=== PATIENT | female | born 1950 | race Caucasian/White ===

== ENCOUNTER 2016-09-01 15:32 | Outpatient (CLI) | payer OTHER, MEDICARE | END 2016-09-01 15:33 | disposition home or self-care (01) | DX: M17.0 Bilateral primary osteoarthritis of knee (principal) ==

== ENCOUNTER 2016-09-27 09:39 | Outpatient (CLI) | payer OTHER, MEDICARE | END 2016-09-27 09:40 | disposition home or self-care (01) | DX: E11.9 Type 2 diabetes mellitus without complications (principal); E78.5 Hyperlipidemia, unspecified ==

== ENCOUNTER 2016-10-07 04:10 | Outpatient (CLI) | payer OTHER, MEDICARE | END 2016-10-07 04:11 | DX: K51.80 Other ulcerative colitis without complications (principal) ==

== ENCOUNTER 2017-03-17 20:17 | Emergency (ER) | payer OTHER, MEDICARE ==
--- NOTE | 2017-03-17 20:57 | ED Physician Documentation ---
PD HPI ABD PAIN - Stated complaint Stated Complaint: R SIDE PX - Chief complaint Chief Complaint: Abd Pain - History obtained from History obtained from: Patient - History of Present Illness Timing - onset: How many days ago (1-2) Timing - duration: Days (has had pain in right lower abd for couple of months or so, but it is worse the past 2 days and feeling more sharp pain. Nausea but no vomiting. Had had Dx of hernia by surgeon in [facility]. Has appt with Dr. Kulkarni Apr 06.) Timing - details: Gradual onset, Still present, Waxing and waning Quality: Aching, Sharp, Pain Location: RLQ Radiation: Lower back Improved by: Laying still. No: Eating Worsened by: Moving, Palpation. No: Eating, Breathing Associated symptoms: Nausea, Diarrhea (loose stools). No: Fever, Vomiting, Constipation, Melena, Dysuria, Near syncope / syncope Similar symptoms before: Diagnosis (presumed pain from hernias found on prior CT scan.) Review of Systems Constitutional: denies: Fever, Chills, Myalgias Nose: denies: Rhinorrhea / runny nose, Congestion Throat: denies: Sore throat Cardiac: denies: Chest pain / pressure Respiratory: denies: Cough GI: reports: Abdominal Pain, Nausea, Diarrhea (soft stool). 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: Hysterectomy, Oophrectomy HEENT: Tonsil/Adenoidectomy - Present Medications Home Medications: Ambulatory Orders Medication Instructions Recorded Confirmed Aspirin [Children's Aspirin] 81 mg PO DAILY 05/16/13 06/22/16 Bupropion HCl [Wellbutrin] 100 mg PO BID 05/16/13 06/22/16 Cholecalciferol (Vitamin D3) 2,000 unit PO BID 05/16/13 06/22/16 [Vitamin D] Gabapentin [Neurontin] 300 mg PO BID 05/16/13 06/22/16 Insulin Glargine,Hum.rec.anlog 38 unit SQ QPM 05/16/13 06/21/16 [Lantus Solostar] Lidocaine Patch 5% [Lidoderm Patch] 1 each TOP DAILY PRN 05/16/13 06/21/16 Lisinopril [Prinivil] 20 mg PO DAILY 05/16/13 06/22/16 Simvastatin 40 mg PO QPM 05/16/13 06/21/16 Multivitamin [Multiple Vitamins] 1 each PO DAILY 06/21/16 06/22/16 Omeprazole [PriLOSEC] 20 mg PO DAILY 06/21/16 06/21/16 Oxycodone HCl/Acetaminophen 1 each PO Q6HR PRN 06/21/16 06/22/16 [Oxycodone-Acetaminophen 5-325] Naproxen 375 mg PO BID #20 tablet 03/18/17 Oxycodone HCl/Acetaminophen 1 each PO Q6H PRN #20 tablet 03/18/17 [Percocet 5-325 mg Tablet] - Allergies Allergies/Adverse Reactions: Allergies Allergy/AdvReac Type Severity Reaction Status Date / Time codeine [Codeine] Allergy NAUSEA/EMES Verified 03/17/17 20:27 IS - Living Situation Living Arrangement: reports: At home - Social History Does the pt smoke?: Yes Smoking Status: Current every day smoker Does the pt drink ETOH?: No - Family History Family history: reports: Non contributory - Immunizations Immunizations are current?: Yes PD ED PE NORMAL - Vitals Vital signs reviewed: Yes - General General: Alert and oriented X 3, No acute distress, Well developed/nourished - HEENT HEENT: Moist mucous membranes, Pharynx benign - Neck Neck: Supple, no meningeal sign, No adenopathy - Cardiac Cardiac: RRR, No murmur - Respiratory Respiratory: Clear bilaterally - Abdomen Abdomen: Normal bowel sounds, Soft, Non distended, No organomegaly, Other ( tender RLQ without mass, nor percussion tenderness. Does have some local guarding. ) - Female Female : Deferred - Rectal Rectal: Deferred - Back Back: No CVA TTP - Derm Derm: Normal color, No rash - Extremities Extremities: No deformity, No tenderness to palpate, Normal ROM s pain, No edema - Neuro Neuro: Alert and oriented X 3, No motor deficit, Normal speech - Psych Psych: Normal mood, Normal affect Results - Vitals Vitals: Vital Signs - 24 hr 03/17/17 03/18/17 03/18/17 20:20 00:13 00:16 Temperature 36.7 C Heart Rate 86 57 L Respiratory 17 17 16 Rate Blood Pressure 191/93 H 129/59 L O2 Saturation 97 96 03/18/17 00:23 Temperature Heart Rate 56 L Respiratory 16 Rate Blood Pressure 154/75 H O2 Saturation 96 Oxygen O2 Source Room air - Labs Labs: Laboratory Tests 03/17/17 03/17/17 03/17/17 21:33 21:33 21:33 WBC 9.5 RBC 4.29 Hgb 13.2 Hct 39.1 MCV 91.1 MCH 30.7 MCHC 33.7 RDW 13.6 Plt Count 192 MPV 8.7 Neut # 5.8 Lymph # 2.9 Tompkins # 0.5 Eos # 0.2 Baso # 0.1 Absolute Nucleated RBC 0.01 Nucleated RBCs 0.1 Sodium 140 Potassium 3.7 Chloride 105 Carbon Dioxide 28 Anion Gap 7.0 BUN 16 Creatinine 0.7 Estimated GFR (MDRD) 84 L Glucose 192 H Calcium 9.0 Total Bilirubin 0.4 AST 21 ALT 33 Alkaline Phosphatase 62 Total Protein 7.0 Albumin 3.9 Globulin 3.1 Albumin/Globulin Ratio 1.3 Lipase 29 Urine Color YELLOW Urine Clarity CLEAR Urine pH 5.5 Ur Specific [place] >=1.030 H Urine Protein NEGATIVE Urine Glucose (UA) NEGATIVE Urine Ketones NEGATIVE Urine Occult Blood TRACE-LYSE Urine Nitrite NEGATIVE Urine Bilirubin NEGATIVE Urine Urobilinogen 0.2 (NORMAL) Ur Leukocyte Esterase TRACE H Urine RBC 0-5 Urine WBC 4-5 Ur Squamous Epith Cells MOD Squamous H Urine Bacteria Rare Ur Microscopic Review INDICATED Urine Culture Comments NOT INDICATED PD MEDICAL DECISION MAKING - ED course Complexity details: reviewed results, re-evaluated patient, considered differential (no obvious incarceration nor blockage on CT. Having increased pain over baseline, presume from her hernia. Can treat with pain meds short term until sees Surgeon in office. Labs are okay too, so I don't have indicator of bad process. ), d/w patient Departure - Departure Disposition: 01 Home, Self Care Clinical Impression: Lower abdominal pain Condition: Stable Record reviewed to determine appropriate education?: Yes Instructions: ED Abdominal Pain Unkn Cause Follow-Up: Neno Rosales MD [Primary Care Provider] - Gideon Alicea MD [Provider Admit Priv/Credential] - Prescriptions: Naproxen 375 mg PO BID #20 tablet Oxycodone HCl/Acetaminophen [Percocet 5-325 mg Tablet] 1 each PO Q6H PRN #20 tablet PRN Reason: Pain Comments: Drink lots of fluids. Regular home medications. Add naproxen twice daily for the next week or so. Continue the oxycodone as needed for pain. Follow-up with Dr. Alicea, call his office Monday to see if you can get a sooner appointment. Discharge Date/Time: 03/18/17 00:30
[2017-03-17] MEDS ORDERED: HYDROmorphone 1 MG/ML SYRINGE IVP STA ×2 (21:17→23:49)
[2017-03-17] MEDS ORDERED: HYDROmorphone 1 MG/ML SYRINGE ONE ×2 (21:40→23:54)
[2017-03-17] MEDS ORDERED: SODIUM CHLORIDE FLUSH 0.9% 10 ML SYRINGE IVP ONE ×2 (21:41→23:55)
[2017-03-17 21:57] LABS: BASOPHILS # (AUTO) 0.1 10^3/uL (0.0-0.1); BASOPHILS % (AUTO) 0.5 %; EOSINOPHILS # (AUTO) 0.2 10^3/uL (0.0-0.7); EOSINOPHILS % (AUTO) 1.7 %; HCT - HEMATOCRIT 39.1 % (37.0-47.0); HGB - HEMOGLOBIN 13.2 g/dL (12.0-16.0); LYMPHOCYTES # (AUTO) 2.9 10^3/uL (1.5-3.5); LYMPHOCYTES % (AUTO) 30.6 %; MEAN CORPUSCULAR HEMOGLOBIN 30.7 pg (27.0-31.0); MEAN CORPUSCULAR HGB CONC 33.7 g/dL (32.0-36.0); MEAN CORPUSCULAR VOLUME 91.1 fL (81.0-99.0); MEAN PLATELET VOLUME 8.7 fL (7.9-10.8); MONOCYTES # (AUTO) 0.5 10^3/uL (0.0-1.0); MONOCYTES % (AUTO) 5.8 %; NEUTROPHILS # (AUTO) 5.8 10^3/uL (1.5-6.6); NEUTROPHILS % (AUTO) 61.4 %; NUCLEATED RED BLOOD CELLS AUTO 0.1 /100WBC; RED BLOOD COUNT 4.29 10^6/uL (4.20-5.40); RED CELL DISTRIBUTION WIDTH 13.6 % (12.0-15.0); UNCORRECTED WHITE BLOOD COUNT 9.5 x10^3/uL; WHITE BLOOD COUNT 9.5 x10^3/uL (4.8-10.8)
[2017-03-17 22:12] LABS: ALBUMIN/GLOBULIN RATIO 1.3 (1.0-2.2); BILIRUBIN,TOTAL 0.4 mg/dL (0.2-1.0); CREATININE 0.7 mg/dL (0.4-1.0); POTASSIUM 3.7 mmol/L (3.5-5.0)
[2017-03-17 22:14] LABS: BILIRUBIN,URINE NEGATIVE (NEGATIVE); PH,URINE 5.5 PH (5.0-7.5)
[2017-03-17 22:17] LABS: UA w/ MICROSCOPIC CHARGE YES
[2017-03-17 22:26] LABS: UR CULTURE IF IND NOT INDICATED
[2017-03-17] MEDS ORDERED: IOPAMIDOL-300 100 ML VIAL IVP ONE (22:45)
--- NOTE | 2017-03-17 23:37 | CT Preliminary Report ---
Exam: CT Abdomen/Pelvis W/ IMPRESSION: 1. Mildly dilated common duct measuring 9 mm appears unchanged. 2. Left lower pole renal calculus measures 5 mm, nonobstructing, unchanged. 3. Upper abdomen fat-containing ventral hernia with a wide neck, measures 5.4 cm appears unchanged. 4. There appears to be rectal prolapse. Increased soft tissue attenuation and fullness at the perirec dwayne and perianal regions, appear to be present back in 2013. Correlate with the physical exam. No mihai dence for bowel obstruction. Stool volume in the colon appears within normal limits. 5. No evidence for inguinal hernia 6. Otherwise, as above. [facility] SITE ID: [id number]
--- NOTE | 2017-03-17 23:47 | CT Report ---
EXAM: CT ABDOMEN AND PELVIS EXAM DATE: 03/17/2017 10:54 PM. CLINICAL HISTORY: Prior abdominal hernias, hurting consistently today in the right lower quadrant COMPARISONS: CT abdomen and pelvis 05/13/2016 and 09/25/2013. TECHNIQUE: Routine helical CT imaging was performed through the abdomen and pelvis. IV contrast: 100 mL Isovue 300. Enteric contrast: No. Reconstructions: Coronal and sagittal. In accordance with CT protocol optimization, one or more of the following dose reduction techniques w ere utilized for this exam: automated exposure control, adjustment of mA and/or KV based on patient s ize, or use of iterative reconstructive technique. FINDINGS: Lung Bases: Mild coronary artery calcification. 5 mm left lower lobe pulmonary nodule appears unchang ed from 05/13/2016 and 09/25/2013 consistent with benign. Right middle lobe 4 mm pulmonary nodule, un changed from 05/13/2016, not imaged on 09/25/2013 Liver: Lateral segment left hepatic lobe lobular low density mass measures 2.6 cm and this was seen o n the prior, has HU of 16 most suggestive for a liver cyst, appears to have a thin septation. Liver c ontour appears within normal limits. Gallbladder/Bile Ducts: Status post cholecystectomy. Mildly dilated common duct measuring 9 mm appear s unchanged. Spleen: Normal. Pancreas: Normal. Adrenal Glands: Normal. Kidneys: Tiny nonspecific low density lower pole left kidney. Small left parapelvic cyst. Left lower pole renal calculus measures 5 mm, nonobstructing, unchanged. No hydronephrosis. Peritoneal Cavity/Bowel: Mild sigmoid and descending colon diverticulosis without evidence for acute diverticulitis. The appendix is not definitely seen. No evidence for bowel obstruction. Upper abdomen fat-containing ventral hernia with a wide neck, measures 5.4 cm appears unchanged. There appears to be rectal prolapse. Increased soft tissue attenuation and fullness at the perirectal and perianal regions, appear to be present back in 2013. Correlate with the physical exam. No eviden ce for bowel obstruction. Stool volume in the colon appears within normal limits. No evidence for inguinal hernia Pelvic Organs: Normal. The bladder and visualized pelvic organs are within normal limits. Vasculature: No acute findings Bones: No acute bone findings Other: None. IMPRESSION: 1. Mildly dilated common duct measuring 9 mm appears unchanged. 2. Left lower pole renal calculus measures 5 mm, nonobstructing, unchanged. 3. Upper abdomen fat-containing ventral hernia with a wide neck, measures 5.4 cm appears unchanged. 4. There appears to be rectal prolapse. Increased soft tissue attenuation and fullness at the perirec dwayne and perianal regions, appear to be present back in 2013. Correlate with the physical exam. No mihai dence for bowel obstruction. Stool volume in the colon appears within normal limits. 5. No evidence for inguinal hernia 6. Otherwise, as above. [facility] Referring Provider Line: [phone] SITE ID: [id number]
[2017-03-17] MEDS ORDERED: KETOROLAC 60 MG/2 ML VIAL IVP STA (23:49)
[2017-03-17] MEDS ORDERED: KETOROLAC 30 MG/ML VIAL ONE (23:55)
[2017-03-18 00:29] VITALS: BP 154/75
== END 2017-03-18 00:30 | disposition home or self-care (01) ==
LOC: ED 20:17
DX: R10.31 Right lower quadrant pain (principal); K43.9 Ventral hernia without obstruction or gangrene; E11.9 Type 2 diabetes mellitus without complications; Z79.4 Long term (current) use of insulin; I10 Essential (primary) hypertension; K21.9 Gastro-esophageal reflux disease without esophagitis; Z87.442 Personal history of urinary calculi; F17.200 Nicotine dependence, unspecified, uncomplicated; H91.90 Unspecified hearing loss, unspecified ear; M54.9 Dorsalgia, unspecified; Z79.82 Long term (current) use of aspirin; Z79.891 Long term (current) use of opiate analgesic
CPT/HCPCS: 36415; 74177; 80053; 81001; 83690; 85025; 96374; 96375; 96376; 99284; J1170; Q9967; 81003; 87086

== ENCOUNTER 2017-03-27 09:38 | Outpatient (CLI) | payer OTHER, MEDICARE ==
[2017-03-27 18:58] LABS: HEMOGLOBIN A1C 1.14 g/dL
[2017-03-27 19:15] LABS: CHOL/HDL RATIO 3.5 (<4.4); CHOLESTEROL 227 mg/dL; HDL CHOLESTEROL 64 mg/dL; LDL/HDL RATIO 1.4 (<4.4); TRIGLYCERIDES 356 mg/dL; VLDL CHOLESTEROL 71 mg/dL
== END 2017-03-27 09:39 | disposition home or self-care (01) ==
LOC: LAB.F 09:38
PROVIDERS: ATTEND Physician Assistant
DX: E11.9 Type 2 diabetes mellitus without complications (principal)
CPT/HCPCS: 36415; 80061; 83036

== ENCOUNTER 2017-11-03 08:00 | Outpatient (CLI) | payer OTHER, MEDICARE ==
[2017-11-03 11:26] LABS: BASOPHILS % (AUTO) 0.5 %; EOSINOPHILS # (AUTO) 0.1 10^3/uL (0.0-0.7); EOSINOPHILS % (AUTO) 1.2 %; HGB - HEMOGLOBIN 14.2 g/dL (12.0-16.0); LYMPHOCYTES # (AUTO) 2.6 10^3/uL (1.5-3.5); LYMPHOCYTES % (AUTO) 31.4 %; MEAN CORPUSCULAR HEMOGLOBIN 30.5 pg (27.0-31.0); MEAN CORPUSCULAR HGB CONC 33.9 g/dL (32.0-36.0); MEAN CORPUSCULAR VOLUME 89.9 fL (81.0-99.0); MEAN PLATELET VOLUME 8.7 fL (7.9-10.8); MONOCYTES # (AUTO) 0.4 10^3/uL (0.0-1.0); NEUTROPHILS # (AUTO) 5.1 10^3/uL (1.5-6.6); NEUTROPHILS % (AUTO) 61.9 %; PLT - PLATELET COUNT 220 10^3/uL (130-450); RED BLOOD COUNT 4.66 10^6/uL (4.20-5.40); RED CELL DISTRIBUTION WIDTH 13.9 % (12.0-15.0); WHITE BLOOD COUNT 8.3 x10^3/uL (4.8-10.8)
[2017-11-03 11:40] LABS: HB2 TOTAL 15.7 g/dL; HEMOGLOBIN A1C 1.02 g/dL; HEMOGLOBIN A1C % 8.1 % (4.6-6.2)
[2017-11-03 11:44] LABS: % IRON SATURATION 14 % (20-50); ALBUMIN 4.4 g/dL (3.2-5.5); ALBUMIN/GLOBULIN RATIO 1.4 (1.0-2.2); ALKALINE PHOSPHATASE 49 IU/L (42-121); ALT ALANINE AMINOTRANSFERASE 41 IU/L (10-60); AST ASPARTATE AMINOTRANSFERASE 26 IU/L (10-42); BILIRUBIN,TOTAL 0.6 mg/dL (0.2-1.0); BUN - BLOOD UREA NITROGEN 18 mg/dL (6-20); CALCIUM 9.6 mg/dL (8.5-10.3); CARBON DIOXIDE - CO2 28 mmol/L (21-32); CHLORIDE 103 mmol/L (101-111); CHOL/HDL RATIO 3.4 (<4.4); CHOLESTEROL 230 mg/dL; CREATININE 0.6 mg/dL (0.4-1.0); GFR - MDRD 100 (>89); GLUCOSE 112 mg/dL (70-100); HDL CHOLESTEROL 68 mg/dL; IRON 59 ug/dL (28-170); LDL CHOLESTEROL,CALCULATED 117 mg/dL; LDL/HDL RATIO 1.7 (<4.4); SODIUM 141 mmol/L (135-145); TOTAL IRON BINDING CAPACITY 437 ug/dL (250-450); TOTAL PROTEIN 7.6 g/dL (6.7-8.2); TRANSFERRIN 312 mg/dL (192-382); VLDL CHOLESTEROL 45 mg/dL
[2017-11-03 11:53] LABS: THYROID STIMULATING HORMONE 1.46 uIU/mL (0.34-5.60)
[2017-11-03 12:00] LABS: FERRITIN 64.7 ng/mL (11.0-306.8)
[2017-11-03 13:01] LABS: FOLATE > 49.60 ng/mL (5.90 - >24.8)
[2017-11-10 17:37] LABS: ZINC, PLASMA 103 mcg/dL (60-130)
== END 2017-11-03 08:01 | disposition home or self-care (01) ==
LOC: LAB.F 08:00
PROVIDERS: ATTEND Physician Assistant
DX: K91.2 Postsurgical malabsorption, not elsewhere classified (principal); E78.5 Hyperlipidemia, unspecified; E11.9 Type 2 diabetes mellitus without complications; K80.00 Calculus of gallbladder with acute cholecystitis without obstruction
CPT/HCPCS: 36415; 80053; 80061; 81599; 82306; 82607; 82728; 82746; 83036; 83525; 83540; 83721; 84425; 84443; 84466; 84590; 84630; 84681; 85025

== ENCOUNTER 2017-11-07 08:00 | Outpatient (CLI) | payer OTHER, MEDICARE | END 2017-11-07 08:01 | LOC: LAB.F 08:00 | DX: K91.2 Postsurgical malabsorption, not elsewhere classified (principal); E78.5 Hyperlipidemia, unspecified; E11.9 Type 2 diabetes mellitus without complications; K80.00 Calculus of gallbladder with acute cholecystitis without obstruction | CPT/HCPCS: 84590 ==

== ENCOUNTER 2017-11-21 15:00 | Outpatient (CLI) | payer OTHER, MEDICARE | END 2017-11-21 15:01 | disposition home or self-care (01) | LOC: SC 15:00 | PROVIDERS: ATTEND Internal Medicine Pulmonary Disease | DX: R06.83 Snoring (principal); I10 Essential (primary) hypertension | CPT/HCPCS: 99203; 99212 ==

== ENCOUNTER 2017-12-21 08:43 | Outpatient (CLI) | payer OTHER, MEDICARE ==
[2017-12-21] MEDS ORDERED: REGADENOSON 0.4 MG/5 ML SYRINGE IVP ONE (10:12)
--- NOTE | 2017-12-21 15:41 | CARDIAC PROCEDURE NOTE ---
DATE OF SERVICE: 12/21/2017 Physician: JULIETTE Caruso DATE OF SERVICE: 12/21/2017. PRIMARY CARE PROVIDER: Taryn Munoz PA-C. SENIOR MARKET RESEARCH ANALYST: Dr. Gary Lino. PROCEDURE: Pharmacologic cardiac stress test. PROCEDURE SYMPTOMS: Of abnormal EKG with nonspecific ST changes. CARDIAC RISK FACTORS: Age, diabetes, hypertension, hyperlipidemia, and former smoker. PREVIOUS CARDIAC PROCEDURES: None. CLINICAL HISTORY: A 67-year-old female without known coronary artery disease. She has no current symptoms and no medications were held. INITIAL RESTING VITAL SIGNS: BP 138/70, heart rate 98, height 60 inches, weight 183 pounds. PROCEDURE AND FINDINGS: The patient identity and date verified. Consent signed. Pharmaceutical check. Pharmacologic stress testing was performed with Lexiscan at a dose of 0.4 mg over 10 seconds. The heart rate increased to 119 beats per minute from the infusion. Blood pressure response was increased to 154/66. The patient developed mild infusion-related symptoms, which included headache and resolved spontaneously. The resting ECG demonstrated normal sinus rhythm with 0.5-0.8 ST segment depression in leads II and aVF. Maximum ST segment depression with stress was more than 1.5 mm and downsloping. There was a rare PAC. FINAL IMPRESSIONS: 1. Positive electrocardiogram for ischemia in the setting of vasodilator stress. 2. Nondiagnostic stress test for angina. 3. Good quality test. 4. Await myocardial perfusion report. TD: 12/21/2017 15:40
--- NOTE | 2017-12-22 08:14 | Nuclear Medicine Report ---
EXAM: SINGLE-ISOTOPE PHARMACOLOGICAL STRESS TEST WITH REGADENOSON. SINGLE-ISOTOPE AND ONE-DAY REST/STRESS M YOCARDIAL PERFUSION SCANS WITH TOMOGRAPHIC IMAGING, QUANTITATIVE ANALYSIS, WALL MOTION ANALYSIS AND C ALCULATION OF EJECTION FRACTION. EXAM DATE: 12/21/2017 04:45 PM. CLINICAL HISTORY: Abnormal EKG. COMPARISON: None available. TECHNIQUE: After the intravenous administration of 9.5 mCi of Tc-99m sestamibi, a rest myocardial perfusion scan was done with tomography. Motion correction was applied when appropriate. After an appropriate delay, pharmacological stress was performed with the infusion of 0.4 mg regadeno son per protocol. According to protocol, 40.2 mCi of Tc-99m sestamibi was injected for stress myocard ial perfusion scan. Motion correction was applied when appropriate. Gated tomographic images were obtained for wall motion analysis and computation of left ventricular e jection fraction. FINDINGS: No convincing fixed or reversible perfusion defects are evident. Wall motion analysis demonstrates no focal wall motion abnormality. The left ventricular end-diastolic volume is 48 cc. The left ventricular end-systolic volume is 12 cc . The left ventricular ejection fraction is calculated to be 75%. IMPRESSION: 1. No scintigraphic findings to indicate myocardial ischemia. Negative for infarct. 2. Left ventricular ejection fraction of 75%. 3. Normal segmental and global wall motion. 4. Normal left ventricular cavity size, no change with stress. [facility] Referring Provider Line: [phone] SITE ID: [id number]
[2017-12-25 16:42] VITALS: BP 138/70
== END 2017-12-21 08:44 | disposition home or self-care (01) ==
LOC: DI 08:43
PROVIDERS: ATTEND Internal Medicine Cardiovascular Disease
DX: R94.31 Abnormal electrocardiogram [ECG] [EKG] (principal)
CPT/HCPCS: 78452; 93017; 93306; A9500; J2785; 93016; 93018

== ENCOUNTER 2018-01-25 09:00 | Outpatient (CLI) | payer OTHER, MEDICARE | END 2018-01-25 09:01 | disposition home or self-care (01) | LOC: SC 09:00 | PROVIDERS: ATTEND Nurse Practitioner Family | DX: G47.33 Obstructive sleep apnea (adult) (pediatric) (principal) | CPT/HCPCS: 99212; 99214 ==

== ENCOUNTER 2018-03-02 07:23 | Outpatient (CLI) | payer OTHER, MEDICARE ==
[2018-03-02 11:51] LABS: BASOPHILS # (AUTO) 0.1 10^3/uL (0.0-0.1); BASOPHILS % (AUTO) 0.9 %; EOSINOPHILS # (AUTO) 0.2 10^3/uL (0.0-0.7); EOSINOPHILS % (AUTO) 2.5 %; HGB - HEMOGLOBIN 13.2 g/dL (12.0-16.0); LYMPHOCYTES # (AUTO) 2.6 10^3/uL (1.5-3.5); LYMPHOCYTES % (AUTO) 33.7 %; MEAN CORPUSCULAR HEMOGLOBIN 30.2 pg (27.0-31.0); MEAN CORPUSCULAR HGB CONC 32.7 g/dL (32.0-36.0); MEAN CORPUSCULAR VOLUME 92.6 fL (81.0-99.0); MEAN PLATELET VOLUME 9.3 fL (7.9-10.8); MONOCYTES # (AUTO) 0.4 10^3/uL (0.0-1.0); MONOCYTES % (AUTO) 4.9 %; NEUTROPHILS # (AUTO) 4.4 10^3/uL (1.5-6.6); PLT - PLATELET COUNT 229 10^3/uL (130-450); RED BLOOD COUNT 4.37 10^6/uL (4.20-5.40); RED CELL DISTRIBUTION WIDTH 13.6 % (12.0-15.0); WHITE BLOOD COUNT 7.6 x10^3/uL (4.8-10.8)
[2018-03-02 12:02] LABS: ALBUMIN 4.1 g/dL (3.2-5.5); ALBUMIN/GLOBULIN RATIO 1.2 (1.0-2.2); BILIRUBIN,TOTAL 0.8 mg/dL (0.2-1.0); CALCIUM 9.8 mg/dL (8.5-10.3); CREATININE 0.6 mg/dL (0.4-1.0); TOTAL PROTEIN 7.4 g/dL (6.7-8.2)
[2018-03-02 12:20] LABS: HB2 TOTAL 14.1 g/dL; HEMOGLOBIN A1C 1.03 g/dL; HEMOGLOBIN A1C % 8.8 % (4.6-6.2)
== END 2018-03-02 07:24 | disposition home or self-care (01) ==
LOC: LAB.F 07:23
PROVIDERS: ATTEND Surgery
DX: E11.9 Type 2 diabetes mellitus without complications (principal); E78.5 Hyperlipidemia, unspecified; I10 Essential (primary) hypertension
CPT/HCPCS: 36415; 80053; 81599; 83036; 83525; 84681; 85025

== ENCOUNTER 2018-06-05 07:25 | Outpatient (CLI) | payer OTHER, MEDICARE ==
[2018-06-05 10:46] LABS: HGB - HEMOGLOBIN 13.6 g/dL (12.0-16.0); MEAN CORPUSCULAR HEMOGLOBIN 29.4 pg (27.0-31.0); MEAN CORPUSCULAR HGB CONC 33.1 g/dL (32.0-36.0); MEAN CORPUSCULAR VOLUME 88.9 fL (81.0-99.0); MEAN PLATELET VOLUME 9.4 fL (7.9-10.8); RED BLOOD COUNT 4.63 10^6/uL (4.20-5.40); WHITE BLOOD COUNT 8.2 x10^3/uL (4.8-10.8)
[2018-06-05 11:26] LABS: THYROID STIMULATING HORMONE 0.89 uIU/mL (0.34-5.60)
[2018-06-05 11:34] LABS: FERRITIN 37.2 ng/mL (11.0-306.8); HB2 TOTAL 14.2 g/dL; HEMOGLOBIN A1C 0.74 g/dL; HEMOGLOBIN A1C % 6.9 % (4.6-6.2)
[2018-06-05 11:35] LABS: % IRON SATURATION 20 % (20-50); ALBUMIN 4.1 g/dL (3.2-5.5); ALBUMIN/GLOBULIN RATIO 1.4 (1.0-2.2); ALKALINE PHOSPHATASE 69 IU/L (42-121); ALT ALANINE AMINOTRANSFERASE 27 IU/L (10-60); AST ASPARTATE AMINOTRANSFERASE 23 IU/L (10-42); BILIRUBIN,TOTAL 0.7 mg/dL (0.2-1.0); BUN - BLOOD UREA NITROGEN 13 mg/dL (6-20); CALCIUM 9.1 mg/dL (8.5-10.3); CARBON DIOXIDE - CO2 30 mmol/L (21-32); CHLORIDE 103 mmol/L (101-111); CHOL/HDL RATIO 2.9 (<4.4); CHOLESTEROL 191 mg/dL; CREATININE 0.6 mg/dL (0.4-1.0); GFR - MDRD 100 (>89); GLUCOSE 91 mg/dL (70-100); HDL CHOLESTEROL 66 mg/dL; IRON 75 ug/dL (28-170); LDL CHOLESTEROL,CALCULATED 97 mg/dL; LDL/HDL RATIO 1.5 (<4.4); SODIUM 140 mmol/L (135-145); TOTAL IRON BINDING CAPACITY 372 ug/dL (250-450); TOTAL PROTEIN 7.1 g/dL (6.7-8.2); TRANSFERRIN 266 mg/dL (192-382); VLDL CHOLESTEROL 28 mg/dL
[2018-06-05 11:43] LABS: CRP - C-REACTIVE PROTEIN < 1.0 mg/dL (0-1.0)
[2018-06-08 15:57] LABS: VITAMIN A (RETINOL) 63 mcg/dL (38-98)
[2018-06-08 18:22] LABS: ZINC, PLASMA 90 mcg/dL (60-130)
== END 2018-06-05 07:26 | disposition home or self-care (01) ==
LOC: LAB.F 07:25
PROVIDERS: ATTEND Surgery
DX: E66.9 Obesity, unspecified (principal); K91.2 Postsurgical malabsorption, not elsewhere classified; Z98.84 Bariatric surgery status; E11.9 Type 2 diabetes mellitus without complications; I10 Essential (primary) hypertension; E78.5 Hyperlipidemia, unspecified
CPT/HCPCS: 36415; 80053; 80061; 81599; 82306; 82607; 82728; 82746; 83036; 83525; 83540; 83721; 84425; 84443; 84466; 84590; 84630; 84681; 85027; 86140

== ENCOUNTER 2018-09-07 07:09 | Outpatient (CLI) | payer OTHER, MEDICARE ==
[2018-09-07 12:04] LABS: HGB - HEMOGLOBIN 13.7 g/dL (12.0-16.0); MEAN CORPUSCULAR HEMOGLOBIN 30.2 pg (27.0-31.0); MEAN CORPUSCULAR HGB CONC 33.7 g/dL (32.0-36.0); MEAN CORPUSCULAR VOLUME 89.6 fL (81.0-99.0); MEAN PLATELET VOLUME 9.3 fL (7.9-10.8); RED BLOOD COUNT 4.52 10^6/uL (4.20-5.40); RED CELL DISTRIBUTION WIDTH 14.9 % (12.0-15.0); WHITE BLOOD COUNT 6.7 x10^3/uL (4.8-10.8)
[2018-09-07 12:25] LABS: % IRON SATURATION 19 % (20-50); ALBUMIN 4.2 g/dL (3.2-5.5); ALBUMIN/GLOBULIN RATIO 1.4 (1.0-2.2); ALKALINE PHOSPHATASE 74 IU/L (42-121); ALT ALANINE AMINOTRANSFERASE 24 IU/L (10-60); AST ASPARTATE AMINOTRANSFERASE 18 IU/L (10-42); BILIRUBIN,TOTAL 0.8 mg/dL (0.2-1.0); BUN - BLOOD UREA NITROGEN 23 mg/dL (6-20); CALCIUM 9.5 mg/dL (8.5-10.3); CARBON DIOXIDE - CO2 28 mmol/L (21-32); CHLORIDE 101 mmol/L (101-111); CHOL/HDL RATIO 3.4 (<4.4); CHOLESTEROL 200 mg/dL; CREATININE 0.6 mg/dL (0.4-1.0); GFR - MDRD 100 (>89); GLUCOSE 118 mg/dL (70-100); HDL CHOLESTEROL 58 mg/dL; IRON 73 ug/dL (28-170); LDL CHOLESTEROL,CALCULATED 112 mg/dL; LDL/HDL RATIO 1.9 (<4.4); SODIUM 138 mmol/L (135-145); TOTAL IRON BINDING CAPACITY 381 ug/dL (250-450); TOTAL PROTEIN 7.3 g/dL (6.7-8.2); TRANSFERRIN 272 mg/dL (192-382); VLDL CHOLESTEROL 30 mg/dL
[2018-09-07 12:39] LABS: FERRITIN 49.8 ng/mL (11.0-306.8)
[2018-09-10 13:57] LABS: VITAMIN A (RETINOL) 71 mcg/dL (38-98)
[2018-09-11 23:31] LABS: ZINC, PLASMA 85 mcg/dL (60-130)
== END 2018-09-07 07:10 | disposition home or self-care (01) ==
LOC: LAB.F 07:09
PROVIDERS: ATTEND Surgery
DX: E78.5 Hyperlipidemia, unspecified (principal)
CPT/HCPCS: 36415; 80053; 80061; 81599; 82306; 82607; 82728; 82746; 83540; 83721; 84425; 84466; 84590; 84630; 84681; 85027

== ENCOUNTER 2018-10-03 14:21 | Outpatient (CLI) | payer OTHER, MEDICARE ==
--- NOTE | 2018-10-04 08:35 | Mammography Report ---
Reason: ENCOUNTER FOR SCREENING MAMMOGRAM FOR MALIGNANT NE Procedure Date: 10/03/2018 Accession Number: [id number] / [id number] Procedure: JOVON - Screening Mammo w/Garrett CPT Code: FULL RESULT: EXAM: Screening Mammo w/Garrett DATE: 10/03/2018 2:49 PM CLINICAL HISTORY: Screening encounter. 47 pound interval weight loss. No reported risk factors. TECHNIQUE: Bilateral CC and MLO views were obtained. COMPARISON: 10/30/2015 and 06/03/2014. FINDINGS: The breasts demonstrate scattered fibroglandular densities bilaterally. No suspicious masses, clustered microcalcifications, or regions of architectural distortion are identified. IMPRESSION: Negative examination RECOMMENDATION: Routine annual screening unless otherwise clinically indicated. BIRADS CATEGORY 1: Negative STANDARD QUALIFYING STATEMENTS: 1. This examination was not reviewed with the aid of Computer-Aided Detection (CAD). 2. A negative or benign imaging report should not delay biopsy if clinically suspicious findings are present. Consider surgical consultation if warrented. More than 5% of cancers are not identified by imaging. 3. Dense breasts may obscure an underlying neoplasm. 4. This examination was reviewed with the aid of 3D breast imaging (tomosynthesis).
== END 2018-10-03 14:22 | disposition home or self-care (01) ==
LOC: DI 14:21
PROVIDERS: ATTEND Family Medicine
DX: Z12.31 Encounter for screening mammogram for malignant neoplasm of breast (principal)
CPT/HCPCS: 77063; 77067

== ENCOUNTER 2018-11-29 07:36 | Outpatient (CLI) | payer OTHER, MEDICARE ==
[2018-11-29 11:01] LABS: % IRON SATURATION 15 % (20-50); ALBUMIN/GLOBULIN RATIO 1.4 (1.0-2.2); ALKALINE PHOSPHATASE 74 IU/L (42-121); ALT ALANINE AMINOTRANSFERASE 23 IU/L (10-60); AST ASPARTATE AMINOTRANSFERASE 19 IU/L (10-42); BILIRUBIN,TOTAL 0.6 mg/dL (0.2-1.0); BUN - BLOOD UREA NITROGEN 19 mg/dL (6-20); CALCIUM 9.4 mg/dL (8.5-10.3); CARBON DIOXIDE - CO2 31 mmol/L (21-32); CHLORIDE 103 mmol/L (101-111); CHOL/HDL RATIO 3.3 (<4.4); CHOLESTEROL 206 mg/dL; CREATININE 0.4 mg/dL (0.4-1.0); GFR - MDRD 159 (>89); GLUCOSE 111 mg/dL (70-100); HDL CHOLESTEROL 62 mg/dL; IRON 61 ug/dL (28-170); LDL CHOLESTEROL,CALCULATED 109 mg/dL; LDL/HDL RATIO 1.8 (<4.4); SODIUM 142 mmol/L (135-145); TOTAL IRON BINDING CAPACITY 402 ug/dL (250-450); TOTAL PROTEIN 6.8 g/dL (6.7-8.2); TRANSFERRIN 287 mg/dL (192-382); VLDL CHOLESTEROL 35 mg/dL
[2018-11-29 11:09] LABS: HB2 TOTAL 15.8 g/dL; HEMOGLOBIN A1C 0.79 g/dL; HEMOGLOBIN A1C % 6.7 % (4.6-6.2)
[2018-11-29 11:16] LABS: FERRITIN 30.7 ng/mL (11.0-306.8)
[2018-11-29 11:30] LABS: HGB - HEMOGLOBIN 14.3 g/dL (12.0-16.0); MEAN CORPUSCULAR HEMOGLOBIN 30.3 pg (27.0-31.0); MEAN CORPUSCULAR HGB CONC 33.5 g/dL (32.0-36.0); MEAN CORPUSCULAR VOLUME 90.4 fL (81.0-99.0); MEAN PLATELET VOLUME 9.7 fL (7.9-10.8); RED BLOOD COUNT 4.71 10^6/uL (4.20-5.40); RED CELL DISTRIBUTION WIDTH 13.5 % (12.0-15.0)
[2018-12-04 20:47] LABS: ZINC, PLASMA 71 mcg/dL (60-130)
== END 2018-11-29 07:37 | disposition home or self-care (01) ==
LOC: LAB.F 07:36
PROVIDERS: ATTEND Surgery
DX: E11.9 Type 2 diabetes mellitus without complications (principal); E78.5 Hyperlipidemia, unspecified; I10 Essential (primary) hypertension; K91.2 Postsurgical malabsorption, not elsewhere classified
CPT/HCPCS: 36415; 80053; 80061; 82306; 82607; 82728; 82746; 83036; 83540; 83721; 84425; 84466; 84590; 84630; 85027

== ENCOUNTER 2018-12-05 07:23 | Outpatient (CLI) | payer OTHER, MEDICARE | END 2018-12-05 07:24 | disposition home or self-care (01) | LOC: LAB.F 07:23 | PROVIDERS: ATTEND Surgery | DX: E11.9 Type 2 diabetes mellitus without complications (principal); K91.2 Postsurgical malabsorption, not elsewhere classified; E78.5 Hyperlipidemia, unspecified; I10 Essential (primary) hypertension | CPT/HCPCS: 84590 ==

== ENCOUNTER 2019-03-14 07:12 | Outpatient (CLI) | payer OTHER, MEDICARE ==
[2019-03-14 10:22] LABS: HGB - HEMOGLOBIN 15.1 g/dL (12.0-16.0); MEAN CORPUSCULAR HEMOGLOBIN 31.4 pg (27.0-31.0); MEAN PLATELET VOLUME 11.1 fL (7.9-10.8); RED BLOOD COUNT 4.81 10^6/uL (4.20-5.40); RED CELL DISTRIBUTION WIDTH 12.6 % (12.0-15.0); WHITE BLOOD COUNT 5.8 x10^3/uL (4.8-10.8)
[2019-03-14 11:12] LABS: HB2 TOTAL 16.2 g/dL; HEMOGLOBIN A1C 0.74 g/dL; HEMOGLOBIN A1C % 6.3 % (4.6-6.2)
[2019-03-14 11:25] LABS: FERRITIN 46.2 ng/mL (11.0-306.8)
[2019-03-14 11:35] LABS: % IRON SATURATION 33 % (20-50); ALBUMIN 4.1 g/dL (3.2-5.5); ALBUMIN/GLOBULIN RATIO 1.3 (1.0-2.2); ALKALINE PHOSPHATASE 75 IU/L (42-121); ALT ALANINE AMINOTRANSFERASE 21 IU/L (10-60); AST ASPARTATE AMINOTRANSFERASE 17 IU/L (10-42); BILIRUBIN,TOTAL 0.8 mg/dL (0.2-1.0); BUN - BLOOD UREA NITROGEN 19 mg/dL (6-20); CALCIUM 9.6 mg/dL (8.5-10.3); CARBON DIOXIDE - CO2 27 mmol/L (21-32); CHLORIDE 103 mmol/L (101-111); CHOL/HDL RATIO 3.1 (<4.4); CHOLESTEROL 223 mg/dL; CREATININE 0.6 mg/dL (0.4-1.0); GFR - MDRD 100 (>89); GLUCOSE 83 mg/dL (70-100); HDL CHOLESTEROL 71 mg/dL; IRON 132 ug/dL (28-170); LDL CHOLESTEROL,CALCULATED 121 mg/dL; LDL/HDL RATIO 1.7 (<4.4); SODIUM 141 mmol/L (135-145); TOTAL IRON BINDING CAPACITY 398 ug/dL (250-450); TOTAL PROTEIN 7.2 g/dL (6.7-8.2); TRANSFERRIN 284 mg/dL (192-382); VLDL CHOLESTEROL 31 mg/dL
[2019-03-14 14:24] LABS: FOLATE > 49.60 ng/mL (5.90 - >24.8)
== END 2019-03-14 07:13 | disposition home or self-care (01) ==
LOC: LAB.S 07:12
PROVIDERS: ATTEND Surgery
DX: E78.5 Hyperlipidemia, unspecified (principal); E11.9 Type 2 diabetes mellitus without complications; K21.9 Gastro-esophageal reflux disease without esophagitis; K91.2 Postsurgical malabsorption, not elsewhere classified
CPT/HCPCS: 36415; 80053; 80061; 82306; 82607; 82728; 82746; 83036; 83540; 83721; 84425; 84466; 84590; 84630; 85027

== ENCOUNTER 2019-06-20 08:45 | Day surgery (SDC) | payer OTHER, MEDICARE ==
[~2019-06-20 08:45] MED LIST: BRIMONIDINE 0.2% OPHTH DROPS 5 ML ONE; BSS/LIDOCAINE/EPINEPHRINE 1 ML SYRINGE ONE; CYCLOPENTOLATE 1% OPHTH DROPS 2 ML ONE; KETOROLAC 0.45% OPHTH DROPS ONE; PHENYLEPHRINE 2.5% OPHTH 2 ML DROPS ONE; PROPARACAINE 0.5% OPHTH DROPS 15 ML ONE; TIMOLOL 0.5% OPHTH DROPS ONE; TRIAMCIN/MOXIFLOX OPHTHALMIC 0.6 ML VIAL IO ONE; VANCOMYCIN OPHTHALMI 8MG/0.8ML 8 MG/0.8 ML SYRINGE IO ONE
[2019-06-20] MEDS ORDERED: fentaNYL 100 MCG/2 ML VIAL IVP ONE (08:46)
[2019-06-20] MEDS ORDERED: MIDAZOLAM 2 MG/2 ML VIAL IVP ONE (08:46)
[2019-06-20] MEDS ORDERED: LACTATED RINGERS 500 ML IV ONE (08:49)
[2019-06-20] MEDS ORDERED: CYCLOPENTOLATE 1% OPHTH DROPS 2 ML RIGHTEYE ONE (08:57)
[2019-06-20] MEDS ORDERED: PROPARACAINE 0.5% OPHTH DROPS 15 ML RIGHTEYE ONE ×2 (08:57→09:41)
[2019-06-20] MEDS ORDERED: KETOROLAC 0.45% OPHTH DROPS RIGHTEYE ONE (08:57)
[2019-06-20] MEDS ORDERED: PHENYLEPHRINE 2.5% OPHTH 2 ML DROPS RIGHTEYE ONE (08:57)
--- NOTE | 2019-06-20 09:26 | ANESTHESIA ---
Pre-Anesthesia VS, & Labs - Diagnosis Right senile combined cataract - Procedure Right phaco with IOL IMPLANT Vital Signs: Temp Pulse Resp BP Pulse Ox 36.5 C 67 16 138/76 H 100 06/20/19 08:50 06/20/19 08:50 06/20/19 08:50 06/20/19 08:50 06/20/19 08:50 Height 5 ft Weight (kg) 62 kg Body Mass Index 32.1 - NPO Other (Water at 0600) - Is Patient ?: No - Lab Results Current Lab Results: Laboratory Tests 06/20/19 09:01: POC Whole Bld Glucose 128 H Home Medications and Allergies Aspirin [Children's Aspirin] 81 mg PO DAILY 05/16/13 Bupropion HCl [Wellbutrin] 100 mg PO BID 05/16/13 Cholecalciferol (Vitamin D3) [Vitamin D] 2,000 unit PO BID 05/16/13 Gabapentin [Neurontin] 300 mg PO BID 05/16/13 Lidocaine Patch 5% [Lidoderm Patch] 1 each TOP DAILY PRN 05/16/13 Lisinopril [Prinivil] 20 mg PO DAILY 05/16/13 Simvastatin 40 mg PO QPM 05/16/13 Multivitamin [Multiple Vitamins] 1 each PO DAILY 06/21/16 Oxycodone HCl/Acetaminophen [Oxycodone-Acetaminophen 5-325] 1 each PO Q6HR PRN 06/21/16 Allergies/Adverse Reactions: Allergies Allergy/AdvReac Type Severity Reaction Status Date / Time codeine [Codeine] Allergy NAUSEA/EMES Verified 03/17/17 20:27 IS Anes History & Medical History - Anesthetic History Anesthesia Complications: reports: Other-see comment (Slow wakeup) Family history of Anesthesia Complications: Denies Family history of Malignant Hyperthermia: Denies - Medical History Cardiovascular: reports: Hypertension, High cholesterol Pulmonary: reports: None Gastrointestinal: reports: Hiatal hernia, Colon polyps Urinary: reports: Incontinence, Kidney stones Neuro: reports: None Musculoskeletal: reports: Chronic back pain Endocrine/Autoimmune: reports: Type 2 diabetes, Other (No meds for diabetes) Blood Disorders: reports: None Skin: reports: None Smoking Status: Current every day smoker Psychosocial: reports: No issues indicated - Surgical History General: Cholecystectomy, Appendectomy, Colonoscopy, Other Eyes Ears Nose Throat (EENT): Tonsil/Adenoidectomy Gynecologic: Hysterectomy, Oophrectomy Orthopedic: Other Exam General: Alert, Oriented x3, Cooperative Dental: Dentures full Upper, Partials Upper, Poor dentition Mouth Opening: Greater than 4 Fingerbreadths Neck Mobility: Normal Mallampati classification: II Thyromental Distance: greater than 6 cm Plan Anesthesia Type: MAC Consent for Procedure(s) Verified and Reviewed: Yes Code Status: Attempt Resuscitation ASA classification: 2-Mild systemic disease Is this case an emergency?: No
[2019-06-20] MEDS ORDERED: TIMOLOL 0.5% OPHTH DROPS OPTH ONE (09:51)
[2019-06-20] MEDS ORDERED: EPINEPHrine 1 MG/ML AMP IVP ONE (09:51)
[2019-06-20] MEDS ORDERED: BRIMONIDINE 0.2% OPHTH DROPS 5 ML OPTH ONE (09:51)
[2019-06-20] MEDS ORDERED: CHONDR SULF/HYALURONATE SYRINGE IO ONE (09:51)
[2019-06-20] MEDS ORDERED: BSS/LIDOCAINE/EPINEPHRINE 1 ML SYRINGE IO ONE (09:52)
[2019-06-20 10:32] VITALS: BP 146/68
--- NOTE | 2019-06-20 16:12 | OPERATIVE REPORT ---
DATE OF SERVICE: 06/20/2019 Physician: Otoniel Ragsdale MD PREOPERATIVE DIAGNOSIS: Visually significant cataract, right eye. Cataract surgery was performed by me on the left eye on 10/25/2013. POSTOPERATIVE DIAGNOSIS: Visually significant cataract, right eye. Cataract surgery was performed b y on the left eye on 10/25/2013. PROCEDURE: Phacoemulsification with posterior chamber intraocular lens implant, right eye. SURGEON: Otoniel Ragsdale MD ANESTHESIA: Monitored anesthesia care. COMPLICATIONS: None. OPERATIVE INDICATIONS: This is a 69-year-old woman with progressive vision loss in the right eye due to 2+ nuclear sclerotic cataract. Best corrected visual acuity was 20/40, with glare to 20/125 in t he right eye. Indications for surgery are overall decrease in vision, difficulty seeing words on a Reverse Medical screen, difficulty reading, difficulty seeing words, closed captions or game scores on TV, di fficulty seeing street signs, difficulty driving in low light or at night, difficulty driving at nigh t because headlights from other vehicles, and difficulty with glare or bright lights in any situation . She was consented at length concerning risks and benefits of cataract surgery, after which she exp ressed a desire to proceed with surgery. OPERATIVE PROCEDURE: The patient was taken to OR #3 and placed under monitored anesthesia care. A s urgical timeout was conducted confirming correct patient, correct procedure, and correct surgical sit e. She was given topical anesthesia, then prepped and draped in the usual sterile fashion. The eye was entered at the 12 and 9 o'clock positions. Intracameral Shugarcaine was injected into the anteri or chamber, followed by Viscoat. A continuous-tear curvilinear capsulorrhexis was performed. The nu cleus was hydrodissected and phacoemulsified. The cortex was evacuated using automated infusion and aspiration. Provisc was injected in the capsular bag, and a 23.0 diopter intraocular lens was insert ed in the bag. Approximately 0.25 mL of a mixture of triamcinolone and moxifloxacin was injected tra nssclerally into the vitreous. An additional 0.55 mL of a mixture of triamcinolone, moxifloxacin and vancomycin was injected subconjunctivally in the superior quadrant for infection and inflammation pr ophylaxis. I and A was used to evacuate the viscoelastic materials. The eye was inflated to physiol ogic pressure using balanced salt solution and found to be watertight. The patient was taken from [facility] operating room in good condition and given postoperative instructions. TD: 06/20/2019 10:10
== END 2019-06-20 08:46 | disposition home or self-care (01) ==
LOC: SDS 08:45
PROVIDERS: ATTEND Ophthalmology
PROC: 08RJ3JZ Replacement of Right Lens with Synthetic Substitute, Percutaneous Approach (ICD-10-PCS; principal; 2019-06-20 10:00)
DX: H25.11 Age-related nuclear cataract, right eye (principal); I10 Essential (primary) hypertension; E11.9 Type 2 diabetes mellitus without complications; F17.210 Nicotine dependence, cigarettes, uncomplicated
CPT/HCPCS: 66984; A9270; J3490; V2632

== ENCOUNTER 2019-07-04 12:26 | Outpatient (CLI) | payer OTHER, MEDICARE ==
[2019-07-04 12:51] LABS: BASOPHILS # (AUTO) 0.1 10^3/uL (0.0-0.1); BASOPHILS % (AUTO) 0.8 %; EOSINOPHILS # (AUTO) 0.3 10^3/uL (0.0-0.7); HGB - HEMOGLOBIN 14.8 g/dL (12.0-16.0); LYMPHOCYTES # (AUTO) 2.7 10^3/uL (1.5-3.5); MEAN CORPUSCULAR HEMOGLOBIN 31.5 pg (27.0-31.0); MEAN CORPUSCULAR VOLUME 95.5 fL (81.0-99.0); MEAN PLATELET VOLUME 10.3 fL (7.9-10.8); MONOCYTES # (AUTO) 0.7 10^3/uL (0.0-1.0); MONOCYTES % (AUTO) 8.5 %; NEUTROPHILS # (AUTO) 4.8 10^3/uL (1.5-6.6); NEUTROPHILS % (AUTO) 55.4 %; PLT - PLATELET COUNT 243 10^3/uL (130-450); RED CELL DISTRIBUTION WIDTH 12.7 % (12.0-15.0); WHITE BLOOD COUNT 8.6 x10^3/uL (4.8-10.8)
[2019-07-04 12:57] LABS: ALBUMIN 4.5 g/dL (3.2-5.5); ALBUMIN/GLOBULIN RATIO 1.5 (1.0-2.2); BILIRUBIN,TOTAL 0.8 mg/dL (0.2-1.0); CALCIUM 9.7 mg/dL (8.5-10.3); CREATININE 0.7 mg/dL (0.4-1.0); TOTAL PROTEIN 7.6 g/dL (6.7-8.2)
[2019-07-04 13:52] LABS: HB2 TOTAL 15.7 g/dL; HEMOGLOBIN A1C 0.78 g/dL; HEMOGLOBIN A1C % 6.7 % (4.6-6.2)
== END 2019-07-04 12:27 | disposition home or self-care (01) ==
LOC: LAB 12:26
PROVIDERS: ATTEND Internal Medicine Gastroenterology
DX: E11.9 Type 2 diabetes mellitus without complications (principal); Z79.4 Long term (current) use of insulin; I10 Essential (primary) hypertension
CPT/HCPCS: 36415; 80053; 83036; 85025

== ENCOUNTER 2019-07-15 06:10 | Day surgery (SDC) | payer OTHER, MEDICARE ==
[2019-07-15] MEDS ORDERED: fentaNYL 250 MCG/5 ML VIAL IVP ONE (06:11)
[2019-07-15] MEDS ORDERED: MIDAZOLAM 2 MG/2 ML VIAL IVP ONE (06:11)
[2019-07-15] MEDS ORDERED: LACTATED RINGERS 1,000 ML IV ONE (06:22)
[2019-07-15 09:16] VITALS: BP 140/65
== END 2019-07-15 06:11 | disposition home or self-care (01) ==
LOC: SDS 06:10
PROVIDERS: ATTEND Internal Medicine Gastroenterology
PROC: 0DBC8ZZ Excision of Ileocecal Valve, Via Natural or Artificial Opening Endoscopic (ICD-10-PCS; principal; 2019-07-15 07:30)
DX: D12.0 Benign neoplasm of cecum (principal); K57.30 Diverticulosis of large intestine without perforation or abscess without bleeding; E11.9 Type 2 diabetes mellitus without complications; G89.21 Chronic pain due to trauma; I10 Essential (primary) hypertension; E78.00 Pure hypercholesterolemia, unspecified; F41.9 Anxiety disorder, unspecified; F32.9 Major depressive disorder, single episode, unspecified; F40.240 Claustrophobia; F10.11 Alcohol abuse, in remission; Z79.891 Long term (current) use of opiate analgesic; Z85.820 Personal history of malignant melanoma of skin
CPT/HCPCS: 45380; J3010; J7120

== ENCOUNTER 2019-08-20 13:04 | Outpatient (CLI) | payer OTHER, MEDICARE ==
[2019-08-20 13:34] LABS: ALBUMIN 4.3 g/dL (3.2-5.5); ALBUMIN/GLOBULIN RATIO 1.6 (1.0-2.2); BILIRUBIN,TOTAL 0.7 mg/dL (0.2-1.0); CALCIUM 9.3 mg/dL (8.5-10.3); CREATININE 0.6 mg/dL (0.4-1.0)
== END 2019-08-20 13:05 | disposition home or self-care (01) ==
LOC: LAB 13:04
PROVIDERS: ATTEND Obstetrics & Gynecology
DX: Z01.818 Encounter for other preprocedural examination (principal); N81.5 Vaginal enterocele; N81.6 Rectocele; E11.9 Type 2 diabetes mellitus without complications
CPT/HCPCS: 36415; 80053; 93005

== ENCOUNTER 2019-08-21 06:12 | Day surgery (SDC) | payer OTHER, MEDICARE ==
[2019-08-21] MEDS ORDERED: DEXAMETHASONE 4 MG/ML VIAL IVP ONE (06:13)
[2019-08-21] MEDS ORDERED: MIDAZOLAM 2 MG/2 ML VIAL IVP ONE (06:13)
[2019-08-21] MEDS ORDERED: PROPOFOL 200 MG/20 ML VIAL IVP ONE (06:13)
[2019-08-21] MEDS ORDERED: ePHEDrine 50 MG/ML VIAL IVP ONE (06:13)
[2019-08-21] MEDS ORDERED: cefTRIAXone 1 GM VIAL IV ONE (06:13)
[2019-08-21] MEDS ORDERED: CEFAZOLIN SODIUM IN 0.9 % NACL 2 GM/100 ML BAG IV ONE (06:16)
[2019-08-21] MEDS ORDERED: SCOPOLAMINE PATCH TOP ONE (06:17)
[2019-08-21] MEDS ORDERED: LACTATED RINGERS 1,000 ML IV ONE ×2 (06:22→10:10)
[2019-08-21] MEDS ORDERED: BUPIVACAINE 0.5% PF 30 ML VIAL ONE (07:06)
[2019-08-21] MEDS ORDERED: ESTROGENS, CONJUGATED CREAM 30 GM TUBE ONE (07:08)
--- NOTE | 2019-08-21 07:25 | ANESTHESIA ---
Pre-Anesthesia VS, & Labs - Diagnosis Vaginal enterocele - Procedure Post repair Vital Signs: Temp Pulse Resp BP Pulse Ox 36.2 C L 76 18 134/79 H 97 08/21/19 06:36 08/21/19 06:36 08/21/19 06:36 08/21/19 06:36 08/21/19 06:36 Height 5 ft Weight (kg) 64 kg Body Mass Index 32.1 - NPO >8 hours - Is Patient ?: Not Applicable - Lab Results Current Lab Results: Laboratory Tests 08/21/19 07:06: POC Whole Bld Glucose 102 H Home Medications and Allergies Home Medications: Ambulatory Orders Gabapentin 300 mg PO BID 08/20/19 Zolpidem Tartrate [Ambien] 10 mg PO QPM PRN 08/20/19 buPROPion [Wellbutrin Sr] 150 mg PO BID 08/20/19 Insulin Glargine [Lantus Solostar] 14 unit DAILY PM 08/21/19 Cholecalciferol (Vitamin D3) [Vitamin D] 2,000 unit PO DAILY 05/16/13 Lidocaine Patch 5% [Lidoderm Patch] 1 each TOP BID 05/16/13 lisinopriL [Prinivil] 20 mg PO DAILY 05/16/13 Multivitamin [Multiple Vitamins] 1 each PO DAILY 06/21/16 Oxycodone HCl/Acetaminophen [Oxycodone-Acetaminophen 5-325] 1 - 2 tab PO Q8HR PRN 06/21/16 Atorvastatin [Lipitor] 40 mg PO DAILY 07/10/19 DULoxetine [Cymbalta] 40 mg PO DAILY 07/10/19 Gabapentin 300 mg PO BID 08/20/19 Zolpidem Tartrate [Ambien] 10 mg PO QPM PRN 08/20/19 buPROPion [Wellbutrin Sr] 150 mg PO BID 08/20/19 Insulin Glargine [Lantus Solostar] 14 unit DAILY PM 08/21/19 Allergies/Adverse Reactions: Allergies Allergy/AdvReac Type Severity Reaction Status Date / Time codeine [Codeine] Allergy NAUSEA/EMES Verified 03/17/17 20:27 IS NSAIDS AdvReac Unknown Uncoded 08/21/19 06:52 Anes History & Medical History - Anesthetic History Anesthesia Complications: reports: Post-Operative Nausea/Vomiting Family history of Anesthesia Complications: Denies Family history of Malignant Hyperthermia: Denies - Medical History Cardiovascular: reports: Hypertension, High cholesterol, Other (Left bundle branch block) Pulmonary: reports: None Gastrointestinal: reports: Hiatal hernia, Colon polyps Urinary: reports: Incontinence, Kidney stones Neuro: reports: None Musculoskeletal: reports: Chronic back pain Endocrine/Autoimmune: reports: Type 2 diabetes, Other Blood Disorders: reports: None Skin: reports: None Smoking Status: Former smoker (Quit 3 months ago, hx 20 pack year) Psychosocial: reports: No issues indicated - Surgical History General: Cholecystectomy, Appendectomy, Colonoscopy, Other Eyes Ears Nose Throat (EENT): Tonsil/Adenoidectomy Gynecologic: Hysterectomy, Oophrectomy Orthopedic: Other Exam General: Alert, Oriented x3, Cooperative Dental: Partials Upper Mouth Opening: Greater than 4 Fingerbreadths Neck Mobility: Normal Mallampati classification: II Thyromental Distance: greater than 6 cm Respiratory: Lungs clear Cardiovascular: Regular rate Neurological: Normal speech Cognitive Status: Within normal limits Plan Anesthesia Type: General Consent for Procedure(s) Verified and Reviewed: Yes Code Status: Attempt Resuscitation ASA classification: 2-Mild systemic disease Is this case an emergency?: No
[2019-08-21] MEDS ORDERED: LIDOCAINE MPF 2%-EPI 1:200000 20 ML VIAL ONE (08:31)
[2019-08-21] MEDS ORDERED: ESTROGENS, CONJUGATED CREAM 30 GM TUBE VG ONE (08:36)
[2019-08-21] MEDS ORDERED: BUPIVACAINE 0.5% PF 30 ML VIAL SUBQ ONE ×2 (08:36)
[2019-08-21] MEDS ORDERED: LIDOCAINE 2%-EPI 1:100000 20 ML MDV SUBQ ONE ×2 (08:37)
[2019-08-21] MEDS ORDERED: METHYLENE BLUE 0.5% 50 MG/10 ML AMPULE ONE (09:53)
[2019-08-21] MEDS ORDERED: LORazepam 2 MG/ML VIAL IVP PRN (10:04)
[2019-08-21] MEDS ORDERED: ONDANSETRON 4 MG/2 ML VIAL IVP PRN (10:04)
[2019-08-21] MEDS ORDERED: HYDROcod/ACETAM 10 MG/325 MG TABLET PO PRN (10:04)
--- NOTE | 2019-08-21 10:19 | OPERATIVE REPORT ---
Operative Report - General Procedure Date: 08/21/19 Planned Procedure: enterocele repair Posterior repair Cystoscopy Pre-Op Diagnosis: rectocele enterocele Procedure Performed: enterocele repair Posterior repair Cystoscopy Post Op Diagnosis: Same - Procedure Note Primary Surgeon: Jermaine Ngo MD Anesthesia Provider: Celestine Ocampo CRNA Anesthesia Technique: General ET tube IV Fluids (mL): 800 Estimated Blood Loss (mL): 100 Urine Output (mL): 100 - Other Other Information/Narrative: [id number]
[2019-08-21] MEDS: fentaNYL 100 MCG/2 ML VIAL ONE ×2 (10:28→10:38)
--- NOTE | 2019-08-21 11:20 | OPERATIVE REPORT ---
DATE OF SERVICE: 08/21/2019 Physician: Jermaine Ngo MD PREOPERATIVE DIAGNOSES 1. Rectocele. 2. Enterocele. POSTOPERATIVE DIAGNOSES 1. Rectocele. 2. Enterocele. PROCEDURE: Repair of enterocele, posterior repair, and cystoscopy. SURGEON: Jermaine Ngo MD ANESTHESIA: General via endotracheal tube with Celestine Ocampo CRNA. ESTIMATED BLOOD LOSS: 100 mL INTRAVENOUS FLUIDS: 800 mL URINE OUTPUT: 100 mL FINDINGS: Upon placing the speculum, there was evidence of a very large rectocele that extended all the way to the apex of the vagina. The bladder appeared to be well attached, without evidence of any cystocele. Cystoscopy revealed a normal lining of the bladder. There was a good jet of urine from both ureteral orifices. There was a dimpling in the inferior portion of the right side. No stitch w as visualized. DESCRIPTION OF PROCEDURE: Following adequate endotracheal anesthesia, the patient was placed in the dorsal lithotomy position in Eliot stirrups. At this point, she was prepped and draped in the usual fashion. A timeout was performed, at which the concerns were addressed. At this point, the vagina w as inspected. The apex of the vagina was grasped with 2 long Allis forceps. This was injected with 0.25% Marcaine with epinephrine and 1% lidocaine with epinephrine. This was then incised transversel y with a #15 blade. Then, utilizing Metzenbaum scissors, the apex of the vagina was dissected up hig h. There was a very weak tendinous portion in the anterior portion. This was thought to potentially be bladder, so this was not entered. At this point, the uterosacral ligaments were plicated with in terrupted sutures of 0 Vicryl. The apex of the vagina was then closed using a running locking suture of 0 Vicryl. There was evidence of good hemostasis. Then, a #15 blade was used to incise the perin eum in a triangular fashion. This was done following injecting the solution of Marcaine and lidocain e with epinephrine. At this point, there were 2 Allis placed at the opening of the vagina and then a n Allis was placed up near the apex of the vagina. Then, utilizing Metzenbaum scissors, the vaginal mucosa was undermined and then transected. The edges were grasped with Tre. This was nura d all the way up to the Allis suture. Then, 0 Vicryl sutures were placed to plicate the rectovaginal fascia. This was done all the way to the opening. There was evidence of good support. The excess vaginal tissue was then excised and then the vaginal mucosa was closed using [id number] of 2-[address] to the opening. At this point, the perineum was also repaired in a standard fashi on. A cystoscopy was performed and there was evidence of good flow of urine from both ureteral jets. There was also an area of dimpling that was close to the right ureter. This was felt that a suture did not penetrate the bladder mucosa. The Ford was then replaced and then vaginal packing was plac ed. The patient tolerated the procedure well and was taken to recovery room in stable condition. Sp onge and needle counts were correct. TD: 08/21/2019 10:28
[2019-08-21] MEDS: HYDROmorphone 0.5 MG/0.5 ML SYRINGE IVP PRN ×3 (12:24→19:25)
[2019-08-21] MEDS: oxyCODONE 5 MG TABLET PO PRN ×2 (14:29→19:31)
[2019-08-21] MEDS: ACETAMINOPHEN 500 MG TABLET PO PRN ×2 (16:00→19:31)
[2019-08-21] MEDS: DOCUSATE SODIUM 250 MG CAPSULE PO SCH (20:34)
[2019-08-21] MEDS: SENNA 8.6 MG TABLET PO SCH (20:34)
[2019-08-21] MEDS: GABAPENTIN 300 MG CAPSULE PO SCH (20:39)
[2019-08-22] MEDS: oxyCODONE 5 MG TABLET PO PRN ×2 (00:45→07:31)
[2019-08-22] MEDS: HYDROmorphone 0.5 MG/0.5 ML SYRINGE IVP PRN ×2 (05:02→08:32)
[2019-08-22 07:27] VITALS: BP 133/63
[2019-08-22] MEDS: ACETAMINOPHEN 500 MG TABLET PO PRN (07:31)
[2019-08-22] MEDS: GABAPENTIN 300 MG CAPSULE PO SCH (08:43)
[2019-08-22] MEDS: SENNA 8.6 MG TABLET PO SCH (08:43)
[2019-08-22] MEDS: DOCUSATE SODIUM 250 MG CAPSULE PO SCH (08:43)
[2019-08-22] MEDS ORDERED: lisinopriL 20 MG TABLET PO SCH (09:00)
[2019-08-22] MEDS ORDERED: polyethylene glycoL 3350 17 GM PACKET PO SCH (09:00)
[2019-08-22] MEDS ORDERED: DOCUSATE SODIUM 250 MG CAPSULE PO SCH (09:00)
== END 2019-08-22 09:15 | disposition home or self-care (01) ==
LOC: SDS 06:12 → MS2 10:41 → SDS 08-22 09:15
PROVIDERS: ATTEND Obstetrics & Gynecology
PROC: 0JQC0ZZ Repair Pelvic Region Subcutaneous Tissue and Fascia, Open Approach (ICD-10-PCS; 2019-08-21)
PROC: 0UQF0ZZ Repair Cul-de-sac, Open Approach (ICD-10-PCS; principal; 2019-08-21 07:30)
DX: N99.3 Prolapse of vaginal vault after hysterectomy (principal); Y83.6 Removal of other organ (partial) (total) as the cause of abnormal reaction of the patient, or of later complication, without mention of misadventure at the time of the procedure; I10 Essential (primary) hypertension; E11.9 Type 2 diabetes mellitus without complications; Z79.899 Other long term (current) drug therapy; Z86.39 Personal history of other endocrine, nutritional and metabolic disease; Z90.710 Acquired absence of both cervix and uterus; Z85.41 Personal history of malignant neoplasm of cervix uteri; Z87.891 Personal history of nicotine dependence; Z98.84 Bariatric surgery status; Z79.4 Long term (current) use of insulin

== ENCOUNTER 2020-10-26 16:42 | Outpatient (CLI) | payer OTHER, MEDICARE | END 2020-10-26 16:43 | disposition home or self-care (01) | LOC: COV 16:42 | PROVIDERS: ATTEND Surgery | DX: Z01.812 Encounter for preprocedural laboratory examination (principal); K43.2 Incisional hernia without obstruction or gangrene; K40.90 Unilateral inguinal hernia, without obstruction or gangrene, not specified as recurrent; Z20.822 Contact with and (suspected) exposure to COVID-19 ==

== ENCOUNTER 2020-10-29 10:29 | Day surgery (SDC) | payer OTHER, MEDICARE ==
[~2020-10-29 10:29] MED LIST changes: -BRIMONIDINE 0.2% OPHTH DROPS 5 ML ONE; -BSS/LIDOCAINE/EPINEPHRINE 1 ML SYRINGE ONE; -CYCLOPENTOLATE 1% OPHTH DROPS 2 ML ONE; -KETOROLAC 0.45% OPHTH DROPS ONE; +LIDOCAINE-PF 2% 10 ML AMP SUBQ ONE; -PHENYLEPHRINE 2.5% OPHTH 2 ML DROPS ONE; -PROPARACAINE 0.5% OPHTH DROPS 15 ML ONE; -TIMOLOL 0.5% OPHTH DROPS ONE; -TRIAMCIN/MOXIFLOX OPHTHALMIC 0.6 ML VIAL IO ONE; -VANCOMYCIN OPHTHALMI 8MG/0.8ML 8 MG/0.8 ML SYRINGE IO ONE
[2020-10-29] MEDS ORDERED: LACTATED RINGERS 1,000 ML IV ONE ×2 (10:53→14:25)
[2020-10-29] MEDS ORDERED: ceFAZolin 2 GM/50 ML 2 GM/50 ML BAG IV ONE (11:00)
[2020-10-29] MEDS ORDERED: MIDAZOLAM 2 MG/2 ML VIAL ONE (11:42)
[2020-10-29] MEDS ORDERED: fentaNYL 100 MCG/2 ML VIAL ONE ×2 (11:42→13:15)
[2020-10-29] MEDS ORDERED: PROPOFOL 200 MG/20 ML VIAL IVP ONE (11:43)
[2020-10-29] MEDS ORDERED: LIDOCAINE-MPF 2% 5 ML VIAL ONE (11:45)
--- NOTE | 2020-10-29 11:45 | ANESTHESIA ---
Pre-Anesthesia VS, & Labs - Diagnosis incisional hearni s/p open cholecystectomy/R inguinal hernia - Procedure incisional hernia repair/ R inguinal hernia repair Height: 5 ft Weight (kg): 63.4 kg Body Mass Index: 27.3 BMI Classification: Overweight - NPO >8 hours - Is Patient ?: No - Lab Results Current Lab Results: Laboratory Tests 10/29/20 11:07: POC Whole Bld Glucose 99 Lab results reviewed: Yes Home Medications and Allergies Home Medications: Ambulatory Orders Liraglutide [Victoza 2-Nasir] 1.2 mg SQ DAILY 10/21/20 Lidocaine Patch 5% [Lidoderm Patch] 1 each TOP BID PRN 05/16/13 lisinopriL [Prinivil] 20 mg PO DAILY 05/16/13 Multivitamin [Multiple Vitamins] 1 each PO DAILY 06/21/16 Oxycodone HCl/Acetaminophen [Oxycodone-Acetaminophen 5-325] 1 - 2 tab PO Q8HR PRN 06/21/16 Atorvastatin [Lipitor] 40 mg PO DAILY 07/10/19 DULoxetine [Cymbalta] 40 mg PO DAILY 07/10/19 Gabapentin 300 mg PO BID 08/20/19 Zolpidem Tartrate [Ambien] 10 mg PO QPM PRN 08/20/19 buPROPion [Wellbutrin Sr] 150 mg PO BID 08/20/19 Liraglutide [Victoza 2-Nasir] 1.2 mg SQ DAILY 10/21/20 Allergies/Adverse Reactions: Allergies Allergy/AdvReac Type Severity Reaction Status Date / Time codeine [Codeine] AdvReac NAUSEA/EMES Verified 10/28/20 16:01 IS NSAIDS (Non-Steroidal AdvReac Unknown Verified 10/28/20 16:01 Anti-Inflamma Anes History & Medical History - Anesthetic History Anesthesia Complications: reports: No previous complications Family history of Anesthesia Complications: Denies Family history of Malignant Hyperthermia: Denies - Medical History Cardiovascular: reports: Hypertension, High cholesterol Pulmonary: reports: None Gastrointestinal: reports: Hiatal hernia, Colon polyps Urinary: reports: Incontinence, Kidney stones Neuro: reports: None Musculoskeletal: reports: Chronic back pain Endocrine/Autoimmune: reports: Type 2 diabetes Blood Disorders: reports: None Skin: reports: None Smoking Status: Former smoker (Quit 3 months ago, hx 20 pack year) - Surgical History General: reports: Cholecystectomy, Appendectomy, Gastric surgery, Colonoscopy, Other Eyes Ears Nose Throat (EENT): reports: Tonsil/Adenoidectomy Gynecologic: reports: Hysterectomy, Oophrectomy Orthopedic: reports: Other Exam General: Alert, Oriented x3, Cooperative Dental: Partials Upper, Poor dentition Mouth Openin Fingerbreadth Neck Mobility: Normal Mallampati classification: II Thyromental Distance: 4-6 cm Respiratory: Lungs clear, Normal breath sounds, No respiratory distress Cardiovascular: Regular rate Neurological: Normal speech Mental/Cognitive Status: Alert/Oriented X3, Normal for patient Cognitive Status: Within normal limits Plan Anesthesia Type: General Consent for Procedure(s) Verified and Reviewed: Yes Code Status: Attempt Resuscitation ASA classification: 2-Mild systemic disease Is this case an emergency?: No
[2020-10-29] MEDS ORDERED: BUPIVACAINE 0.5% PF 30 ML VIAL ONE (11:47)
[2020-10-29] MEDS ORDERED: ACETAMINOPHEN 1,000 MG/100 ML 100 ML IV ONE (12:10)
[2020-10-29] MEDS ORDERED: DEXAMETHASONE 4 MG/ML VIAL ONE (12:13)
[2020-10-29] MEDS ORDERED: ONDANSETRON 4 MG/2 ML VIAL ONE ×2 (12:13→15:29)
[2020-10-29] MEDS ORDERED: BUPIVACAINE 0.5% PF 30 ML VIAL INFIL ONE (12:15)
[2020-10-29] MEDS ORDERED: SODIUM CHLORIDE 0.9% 10 ML ONE (12:26)
[2020-10-29] MEDS ORDERED: ePHEDrine 50 MG/ML VIAL IVP ONE (12:26)
[2020-10-29] MEDS ORDERED: METOCLOPRAMIDE 10 MG/2 ML VIAL IVP PRN (13:46)
[2020-10-29] MEDS ORDERED: ATROPINE ABBOJECT 1 MG/10 ML SYRINGE IVP PRN (13:46)
[2020-10-29] MEDS ORDERED: fentaNYL 100 MCG/2 ML VIAL IVP PRN (13:46)
[2020-10-29] MEDS ORDERED: NALOXONE 0.4 MG/ML VIAL IVP PRN (13:46)
[2020-10-29] MEDS ORDERED: ePHEDrine 50 MG/ML VIAL IVP PRN (13:46)
[2020-10-29] MEDS ORDERED: ONDANSETRON 4 MG/2 ML VIAL IVP PRN ×2 (13:46→14:45)
[2020-10-29] MEDS ORDERED: LACTATED RINGERS 1,000 ML IV SCH (14:00)
[2020-10-29] MEDS: HYDROmorphone 0.5 MG/0.5 ML SYRINGE IVP PRN ×2 (14:40→14:46)
[2020-10-29] MEDS ORDERED: HYDROcod/ACETAM 5/325 MG TABLET PO PRN (14:45)
[2020-10-29] MEDS ORDERED: HYDROmorphone 0.5 MG/0.5 ML SYRINGE IVP PRN (14:45)
[2020-10-29] MEDS ORDERED: HYDROmorphone 1 MG/ML CARPUJECT ONE (14:49)
--- NOTE | 2020-10-29 14:58 | OPERATIVE REPORT ---
Operative Report - General Planned Procedure: Recurrent incisional herniorrhaphy with mesh (CPT 15726 likely [id number]) RIGHT inguinal herniorrhaphy likely with mesh (CPT 50207) Pre-Op Diagnosis: Recurrent incisional hernia and right inguinal hernia (K43.2 and K40.9) Procedure Performed: Recurrent incisional herniorrhaphy using mesh with removal of old mesh (82827, [id number], 48237) Right inguinal herniorrhaphy with mesh (85106) Post Op Diagnosis: Recurrent incisional hernia x2 (above and below the implanted mesh), Right - Procedure Note Primary Surgeon: Gideon Alicea MD Anesthesia Provider: Wes Martinez CRNA Anesthesia Technique: General LMA, Local (30 mL 1/2% marcaine) Pathology: Old mesh not sent to pathology. IV Fluids (mL): 1,400 Estimated Blood Loss (mL): 15 Drain/Tube Type: Other (None.) Findings: Inherent weakness to anterior abdominal wall in addition to right inguinal hernia. Complications: None. - Other Other Information/Narrative: After verbal and written informed consent was obtained detailing the operation, the alternatives the operation including no operation, risks of infection, bleeding requiring transfusion with its risks, nerve injury, and and after I met with the patient confirming the surgery and the site of surgery, the patient was brought to the operative suite and placed supine on the operating table. Great care was taken to avoid pressure points to prevent pressure necrosis or nerve injury. Monitoring devices were applied along with TEDs and pneumatic compression stockings (to prevent DVT). The patient received preoperative antibiotics for surgical prophylaxis. (Anesthesiologist) sedated and anesthetized the patient for the entire procedure. The patient was prepped and draped in the usual sterile manner. With the patient draped my initials were clearly visible. A "time in" then confirmed that the patient was identified with 3 identifiers (name, birthdate, and medical record number), the history and physical was updated and in the chart, the signed consent confirming the procedure was in the chart, the patient was in the correct position, the aforementioned prophylactic measures were in place or given, we had the correct personnel and equipment to complete the procedure and that anesthesia and the surgical team were given an opportunity to express any concerns. With the agreement of everyone in the room we proceeded with the operation. An incision was made overlying the mass tracing the previous right upper quadrant incision starting medially and proceeding laterally. Dissection was carried out down to the hernia sac using a combination of Metzenbaum scissors, and mostly Bovie electrocautery. Hemostasis was obtained using Bovie electrocautery. The sac was cleared of overlying adherent tissue and the fascial defect was delineated. It was clear that the mesh had come free from the inferior aspect of the incision thus creating the multiply recurrent incisional hernia. The sac was entered with Metzenbaum scissors without injury to any of the underlying organs or tissues. Digital examination of the anterior abdominal wall revealed another much smaller hernia at the superior aspect of the mesh where it had from the fascia. I decided since there was a large hernia inferiorly and a smaller hernia superiorly that trying to tie my repair into the old piece of mesh would not work and the old mesh was explanted using a combination of Bovie electrocautery as well as Garland scissors. All the old Prolene sutures holding the mesh in place were similarly removed. The fascial defect was then measured to be 7 cm in width and 6 cm in height. The fascia around this was then cleared of any adherent tissue for 2 cm in every direction again using a combination of Metzenbaum scissors but mostly Bovie electrocautery. An 11 cm in diameter piece of Ventralight ST mesh was obtained and centered into the defect. This was then secured circumferentially at 12, 3, 6, and 9:00 positions with 0 PDS simple sutures taking great care to ensure that there was adequate overlap. Additional simple sutures were placed at 1, 2, 4, 5, 7, 8, 10 and 11:00 positions. Prior to tying all the sutures the deployment mechanism was removed. 2 additional sutures were placed where I felt the spacing was a little bit too great. In order to take 1 little tension there was off the fascial edges 5 [id number] 0 PDS sutures were placed in the fascia and approximated to help take the tension off the mesh and the mesh fascial interface. With this complete the fascia was injected with 10 mL of half percent Marcaine without epinephrine and the skin and subcutaneous tissues were injected with the remaining 5 mL. Due to the fact that this was a previous incision and that the patient had multiple incisions the skin was approximated using skin kvng. Then directed to the right inguinal region. I opted to use the lateral aspect of her panniculectomy scar to enter and a scalpel was used to trace the lateral aspect of the panniculectomy scar on the right. Due to her previous surgery there was a paucity of subcutaneous tissue, and it was clear that there was a weakness beneath the external oblique. This was opened up in the direction of its fibers and dissection showed that the posterior fascia was really quite attenuated and weak. Digital examination also revealed her to be in indirect inguinal hernia. A 6 cm piece of Prolene mesh was obtained and cut to allow for curvature of the inguinal region. This was secured at the pubic tubercle under direct vision with four 2-0 PDS sutures. Laterally it was brought out to cover the indirect hernia defect and and so doing also covered a potential direct hernia and a femoral hernia. The additional mesh was brought up superiorly to intersect with this rather attenuated posterior fascia and a suture was placed there to ensure that the mesh did not roll down. Similarly 2 stitches were placed laterally to allow the mesh to lay flat. To fully understand this the mesh was lying behind the rectus musculature superiorly. Meticulous hemostasis was noted to be present. The opening in the external oblique was closed using a running 2-0 Vicryl suture. This was then injected using 10 mL of half percent Marcaine plain. The skin again was approximated using skin kvng. The subcutaneous tissues were injected with remaining 5 mL of half percent Marcaine. Dressings were applied. At this point a timeout was performed that confirmed that all counts were correct x2, the procedure that was performed, the blood loss, the IV fluids administered, the patient's condition, and any concerns of the operating team had. Having tolerated the procedure well, the patient was taken recovery room in good and stable condition. The plan is for outpatient discharge when the patient is adequately recovered. This document was created in part using voice recognition technology. Because of the inherent limitations of the system, occasional same sounding word substitutions and grammatical errors do occur and persist despite proofreading. Please read this document for content.
[2020-10-29] MEDS ORDERED: oxyCODONE 5 MG TABLET PO PRN (15:11)
[2020-10-29] MEDS ORDERED: oxyCODONE 5 MG TABLET ONE (15:30)
[2020-10-29 15:36] VITALS: BP 160/70
--- NOTE | 2020-10-29 17:14 | ANESTHESIA POST OP EVALUATION ---
Anesthesia Post Eval - Post Anesthesia Eval Vitals: Last Vital Signs Temp 36.6 C 10/29/20 15:35 Pulse 102 H 10/29/20 15:35 Resp 12 10/29/20 15:35 BP 160/70 H 10/29/20 15:35 Pulse Ox 95 10/29/20 15:35 CV Function Including HR & BP: positive: Stable Pain Control: positive: Satisfactory Nausea & Vomiting: positive: Negative Mental Status: positive: Baseline Respiratory Status: Airway Patent Hydration Status: Satisfactory Anesthesia Complications: positive: None
== END 2020-10-29 10:30 | disposition home or self-care (01) ==
LOC: SDS 10:29
PROVIDERS: ATTEND Surgery
DX: K43.2 Incisional hernia without obstruction or gangrene (principal); K40.90 Unilateral inguinal hernia, without obstruction or gangrene, not specified as recurrent; I10 Essential (primary) hypertension; E11.9 Type 2 diabetes mellitus without complications; Z79.84 Long term (current) use of oral hypoglycemic drugs; E66.3 Overweight; Z68.27 Body mass index [BMI] 27.0-27.9, adult; F17.200 Nicotine dependence, unspecified, uncomplicated
CPT/HCPCS: 49505; 49565; 49568; A9270; C1781; J0131; J0690; J1170; J7120

== ENCOUNTER 2020-12-23 10:48 | Outpatient (CLI) | payer OTHER, MEDICARE ==
--- NOTE | 2020-12-24 14:10 | Mammography Report ---
BILATERAL DIGITAL SCREENING MAMMOGRAM 3D/2D: 12/23/2020 CLINICAL: Routine screening. Comparison is made to exams dated: 10/03/2018 mammogram, 10/30/2015 mammogram, 06/03/2014 mammogram, a nd 11/22/2011 mammogram - [facility]. The tissue of both breasts is predominantly f atty. No significant masses, calcifications, or other findings are seen in either breast. There has been no significant interval change. IMPRESSION: NEGATIVE There is no mammographic evidence of malignancy. A 1 year screening mammogram is recommended. This exam was interpreted at Station ID: [id number]. NOTE: For mammograms, a report in lay terms will be sent to the patient. Approximately 15% of breast malignancies will not be visualized mammographically. In the management of a palpable breast mass, a negative mammogram must not discourage biopsy of a clinically suspicious lesion. Electronically Signed By: Russel Peguero acr/penrad:12/23/2020 11:38:32 ACR BI-RADS Category 1: Negative 3341F PARENCHYMAL PATTERN: (F) - The breast(s) demonstrate(s) diffuse fatty replacement. BI-RADS CATEGORY: (1) - 1 RECOMMENDATION: (ANNUAL) - Recommend routine annual screening mammography. [id number] 1 year screening LATERALITY: (B)
== END 2020-12-23 10:49 | disposition home or self-care (01) ==
LOC: DI.S 10:48
DX: Z12.31 Encounter for screening mammogram for malignant neoplasm of breast (principal)

== ENCOUNTER 2021-04-14 11:02 | Outpatient (CLI) | payer OTHER, MEDICARE ==
--- NOTE | 2021-04-14 17:18 | CT Report ---
PROCEDURE: Abdomen/Pelvis WO INDICATIONS: MASS AT HERNIA REPAIR SITE TECHNIQUE: Noncontrast 5 mm thick sections acquired from the diaphragms to the symphysis. 5 mm coronal and sagi ttal reformats were then performed. For radiation dose reduction, the following was used: automated exposure control, adjustment of mA and/or kV according to patient size. COMPARISON: Prior abdomen/pelvis CT 03/17/2017.. FINDINGS: Image quality: Excellent. ABDOMEN: Lung bases: Lung bases are clear. Heart size is normal. Solid organs: Liver and spleen are normal in size. There is a water density left hepatic cysts invo lving the lateral segment. Gallbladder is surgically absent. Pancreas is normal in contours. No adr enal nodules. Kidneys are normal in size, without hydronephrosis or right-sided nephrolithiasis. Th ere is a 8 x 9 mm calculus that appears nonobstructive at the renal collecting system on the left. No associated inflammation. This is located within the lower third of the left kidney. Peritoneum and bowel: Unenhanced bowel loops demonstrate normal wall thickness and caliber. No free fluid or air. Prior gastric reduction surgery appears to have been performed, without operative com plication. Nodes and vessels: No retroperitoneal or mesenteric adenopathy by size criteria. Aorta and inferior vena cava are normal in caliber. Miscellaneous: No ventral hernias. PELVIS: Genitourinary: Bladder wall thickness is normal. Miscellaneous: No inguinal hernias or adenopathy. Multiple surgical clips are seen over the anterio r abdominal wall pelvis. A hernia at time of CT scanning is not found. Bones: No suspicious bony lesions. No vertebral body compression fractures. IMPRESSION: Postsurgical changes as discussed, presumed herniorrhaphy as cause of the surgical clips over the ant erior abdominal wall of the pelvis. A herniation of fat or bowel into the subcutaneous fat is not seen at time of scanning. It may be war ranted to perform targeted ultrasound scanning during Valsalva maneuver to see if the etiology of the reported "mass" can be identified. In some cases during CT scanning a hernia is not manifested where as during targeted ultrasound scanning during Valsalva a hernia may be visualized. Reviewed by: Nain Laurnet MD on 04/14/2021 5:17 PM PDT Approved by: Nain Laurent MD on 04/14/2021 5:17 PM PDT Station ID: [id number]
== END 2021-04-14 11:03 | disposition home or self-care (01) ==
LOC: DI 11:02
PROVIDERS: ATTEND Surgery
DX: R19.03 Right lower quadrant abdominal swelling, mass and lump (principal)

== ENCOUNTER 2021-05-20 07:34 | Outpatient (CLI) | payer OTHER, MEDICARE ==
--- NOTE | 2021-05-20 10:54 | Ultrasound Report ---
PROCEDURE: Abdomen Limited INDICATIONS: ABD PAIN TECHNIQUE: Real-time focused scanning was performed of the abdomen, with image documentation. Valsalva maneuver s were performed. COMPARISON: July 12, 2016. Reference is made to the CT abdomen and pelvis dated April 14 FINDINGS: Focal sonographic images were obtained in the area of clinical concern, right lower quadra nt. No hernia is appreciated. IMPRESSION: No sonographic evidence of a right lower quadrant hernia. Reviewed by: Jaspal Marie MD on 05/20/2021 10:52 AM PDT Approved by: Jaspal Marie MD on 05/20/2021 10:52 AM PDT Station ID: [id number]
== END 2021-05-20 07:35 | disposition home or self-care (01) ==
LOC: DI 07:34
PROVIDERS: ATTEND Surgery
DX: R10.9 Unspecified abdominal pain (principal)

== ENCOUNTER 2022-01-28 14:30 | Outpatient (CLI) | payer OTHER, MEDICARE ==
[2022-01-28 22:28] LABS: ESTIMATED AVERAGE GLUCOSE 166 mg/dL (70-100); HEMOGLOBIN A1c% 7.4 % (4.27-6.07)
== END 2022-01-28 14:31 | disposition home or self-care (01) ==
LOC: LAB.S 14:30
PROVIDERS: ATTEND Nurse Practitioner Family
DX: E11.9 Type 2 diabetes mellitus without complications (principal)
CPT/HCPCS: 36415; 83036

== ENCOUNTER 2022-09-23 17:17 | Emergency (ER) | payer OTHER, MEDICARE ==
[2022-09-23 17:44] VITALS: BP 162/98
== END 2022-09-23 17:48 | disposition left against medical advice (07) ==
LOC: ED 17:17
DX: Z53.29 Procedure and treatment not carried out because of patient's decision for other reasons (principal)

== ENCOUNTER 2022-10-06 07:00 | Outpatient (CLI) | payer OTHER, MEDICARE ==
--- NOTE | 2022-10-07 14:16 | XRAY Report ---
PROCEDURE: Knee 3 View LT INDICATIONS: K KNEE PAIN TECHNIQUE: 3 views of the left knee(s) were acquired. COMPARISON: X-ray knee 09/02/2016 FINDINGS: Bones: No fractures or dislocations. No suspicious bony lesions. Medial hemiarthroplasty is prese nt. Hardware is intact without evidence of hardware fracture or periprosthetic lucency to suggest loo sening. Moderate lateral compartment narrowing. Soft tissues: No joint effusion. No suspicious soft tissue calcifications. IMPRESSION: Medial hemiarthroplasty. Hardware is intact without evidence of hardware fracture or periprosthetic l ucency to suggest loosening. Moderate lateral compartment arthritic change. Reviewed by: Kimberly Joya MD on 10/07/2022 2:14 PM PST Approved by: Kimberly Joya MD on 10/07/2022 2:14 PM PST Station ID: [id number]
--- NOTE | 2022-10-07 14:21 | XRAY Report ---
PROCEDURE: Lumbar Spine 2 View INDICATIONS: LOW BACK PAIN TECHNIQUE: 2 views of the lumbar spine were acquired. COMPARISON: None. FINDINGS: Bones: 5 [id number] vertebrae are present. There is trace anterolisthesis of L4 on L5. Most pr ominent degenerative disc and foraminal narrowing are noted at L5-S1. Mild scattered areas of multile vasiliy disc space narrowing are present throughout the lumbar spine with mild foraminal narrowing at L4- 5. No vertebral body compression fractures. No suspicious bony lesions. Soft tissues: Overlying bowel gas pattern is normal. No suspicious soft tissue calcifications. IMPRESSION: Prominent disc and foraminal narrowing is present at L5-S1. Reviewed by: Kimberly Joya MD on 10/07/2022 2:20 PM PST Approved by: Kimberly Joya MD on 10/07/2022 2:20 PM PST Station ID: [id number]
== END 2022-10-06 23:59 | disposition home or self-care (01) ==
LOC: DI.S 07:00
PROVIDERS: ATTEND Nurse Practitioner Family
DX: M17.12 Unilateral primary osteoarthritis, left knee (principal); Z96.652 Presence of left artificial knee joint; M51.37 Other intervertebral disc degeneration, lumbosacral region; M51.36 Other intervertebral disc degeneration, lumbar region; M48.07 Spinal stenosis, lumbosacral region; M48.061 Spinal stenosis, lumbar region without neurogenic claudication

== ENCOUNTER 2022-11-11 11:32 | Outpatient (CLI) | payer MEDICARE ==
--- NOTE | 2022-11-11 13:39 | XRAY Report ---
PROCEDURE: Shoulder 3 View BILAT INDICATIONS: BILAT SHOULDER JOINT PAIN TECHNIQUE: 3 views of both the shoulder were acquired. COMPARISON: None. FINDINGS: Bones: No fractures or dislocations. No suspicious bony lesions. Visualized ribs appear intact. N o significant degenerative change. Soft tissues: No suspicious soft tissue calcifications. IMPRESSION: No evidence for acute osseous abnormality involving either the right or left shoulders. Reviewed by: Ricky Goel MD on 11/11/2022 1:37 PM PDT Approved by: Ricky Goel MD on 11/11/2022 1:37 PM PDT Station ID: [id number]
--- NOTE | 2022-11-11 13:42 | XRAY Report ---
PROCEDURE: Cervical Spine 2 View INDICATIONS: NECK PAIN TECHNIQUE: 3 view(s) of the cervical spine were acquired. COMPARISON: None. FINDINGS: Bones: No fractures or dislocations to the C7 level. The lateral masses of C1 appear intact on the odontoid view. No suspicious bony lesions. There is moderate degenerative disc disease present C5-6 and C6-7. Soft tissues: No prevertebral soft tissue swelling. IMPRESSION: 1. No evidence for acute osseous abnormality involving the cervical spine. 2. Moderate degenerative disc disease C5-6 and C6-7. 3. Atherosclerotic calcifications of both carotid bulb regions. Reviewed by: Ricky Goel MD on 11/11/2022 1:40 PM PDT Approved by: Ricky Goel MD on 11/11/2022 1:40 PM PDT Station ID: [id number]
--- NOTE | 2022-11-11 13:46 | XRAY Report ---
PROCEDURE: Thoracic Spine 2 View INDICATIONS: NECK PAIN TECHNIQUE: 2 views of the thoracic spine were acquired. COMPARISON: None. FINDINGS: Bones: No fractures or dislocations. No suspicious bony lesions. 12 pairs of ribs are noted, and a ppear intact where visualized. There is some mild mild to moderate diffuse degenerative disc disease throughout the mid thoracic spi ne. Soft tissues: No paravertebral stripe thickening. IMPRESSION: 1. No evidence for acute osseous abnormality identified. 2. Ghnb-fh-[id number] diffuse degenerative disc disease midthoracic spine. 3. Minimal thoracic scoliosis convex to the right. 4. Curvilinear calcification to the left of the patient's lumbar spine. Given the imaging findings I cannot completely exclude a renal abdominal aortic aneurysm if further evaluation clinically indicate d an ultrasound of the aorta may be of further clinical value. Reviewed by: Ricky Goel MD on 11/11/2022 1:45 PM PDT Approved by: Ricky Goel MD on 11/11/2022 1:45 PM PDT Station ID: [id number]
== END 2022-11-11 11:33 | disposition home or self-care (01) ==
LOC: DI.S 11:32
PROVIDERS: ATTEND Nurse Practitioner Family
DX: M25.512 Pain in left shoulder (principal); M25.511 Pain in right shoulder; M51.34 Other intervertebral disc degeneration, thoracic region; R93.5 Abnormal findings on diagnostic imaging of other abdominal regions, including retroperitoneum; M50.322 Other cervical disc degeneration at C5-C6 level; I65.23 Occlusion and stenosis of bilateral carotid arteries

== ENCOUNTER 2022-12-01 10:00 | Outpatient (CLI) | payer MEDICARE ==
--- NOTE | 2022-12-01 13:36 | Ultrasound Report ---
PROCEDURE: Aorta Screening INDICATIONS: SCREENING FOR AAA TECHNIQUE: Real time scanning was performed of the aorta and iliac arteries, with image documentatio n. COMPARISON: None. FINDINGS: Aorta: Proximal aortic diameter measures 2.3 x 2.4 cm. Mid-aorta measures 1.9 x 1.9 cm. Distal aor tic diameter is 1.5 x 1.7 cm. Iliac arteries: Right common iliac artery measures 1.0 cm. Left common iliac artery measures 1.0 cm . IMPRESSION: Negative abdominal aortic screening ultrasound for abdominal aortic aneurysm. Reviewed by: Kiran Vee MD on 12/01/2022 1:34 PM PDT Approved by: Kiran Vee MD on 12/01/2022 1:34 PM PDT Station ID: [id number]
== END 2022-12-01 10:01 | disposition home or self-care (01) ==
LOC: DI 10:00
PROVIDERS: ATTEND Nurse Practitioner Family
DX: Z13.6 Encounter for screening for cardiovascular disorders (principal)

== ENCOUNTER 2022-12-05 07:25 | Emergency (ER) | payer MEDICARE ==
--- NOTE | 2022-12-05 07:38 | ED Physician Documentation ---
PD HPI ALTERED MENTAL STATUS - Stated complaint Stated Complaint: HALLUCINATIONS - History obtained from History obtained from: Patient - History of Present Illness Timing - onset: How many days ago (3-4) Timing - duration: Days (3-4) Timing - details: Gradual onset, Still present Quality / character: Confused, Hallucinating (Reported that she is having visual hallucinations with seeing bugs on the wall and other discernible objects. She denies auditory or tactile hallucinations. Her partner states she has been having a lot of twitching and confused conversation. No disarticulation. No focal weakness. Unsteady/falls.) Associated symptoms: No: Fever, Headache Contributing factors: Recent med change (She states she has been having troubles with insomnia. Had had previously zolpidem and her prescription pharmacy log shows trazodone for sleep. Temazepam 15 mg twice daily for sleep and anxiety with the last prescription on 10 17. Also increased bupropion a month ago. Melatonin and Nyquil recently.). No: Known psych illness, Known dementia Basline status: Alert and oriented X 3, Ambulatory, Other (her partner states this confusion/hallucinations/jittery is new for the patient in the past several days. Seens timed with lack of sleep and meds, and took borrowed ? 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 denies: Abdominal Pain, Diarrhea : denies: Dysuria Skin: denies: Rash, Lesions Neurologic: reports: Generalized weakness, Confused, Head injury (recent imbalance with falls in the past few days.), Other (visual hallucinations and "twitching"). 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, Oophrectomy HEENT: Tonsil/Adenoidectomy - Present Medications Home Medications: Ambulatory Orders Medication Instructions Recorded Confirmed Lidocaine Patch 5% [Lidoderm Patch] 1 each TOP BID PRN 05/16/13 10/28/20 lisinopriL [Prinivil] 20 mg PO DAILY 05/16/13 10/28/20 Multivitamin [Multiple Vitamins] 1 each PO DAILY 06/21/16 10/28/20 Oxycodone HCl/Acetaminophen 1 - 2 tab PO Q8HR PRN 06/21/16 10/28/20 [Oxycodone-Acetaminophen 5-325] Atorvastatin [Lipitor] 40 mg PO DAILY 07/10/19 10/28/20 DULoxetine [Cymbalta] 40 mg PO DAILY 07/10/19 10/28/20 Gabapentin 300 mg PO BID 08/20/19 10/28/20 Zolpidem Tartrate [Ambien] 10 mg PO QPM PRN 08/20/19 10/28/20 buPROPion [Wellbutrin Sr] 150 mg PO BID 08/20/19 10/28/20 Liraglutide [Victoza 2-Nasir] 1.2 mg SQ DAILY 10/21/20 10/28/20 - Allergies Allergies/Adverse Reactions: Allergies Allergy/AdvReac Type Severity Reaction Status Date / Time codeine [Codeine] AdvReac NAUSEA/EMES Verified 12/05/22 07:38 IS NSAIDS (Non-Steroidal AdvReac Unknown Verified 12/05/22 07:38 Anti-Inflamma - Social History Does the pt smoke?: Yes Smoking Status: Former smoker (Quit 3 months ago, hx 20 pack year) Does the pt drink ETOH?: No - Immunizations Immunizations are current?: Yes PD ED PE NORMAL - Vitals Vital signs reviewed: Yes - General General: Alert and oriented X 3, Well developed/nourished, Other (She is somewhat anxious but conversant. She does seem to have to think about her responses to questions and does seem unfocused somewhat. The words are discernible) - HEENT HEENT: Atraumatic - Neck Neck: Supple, no meningeal sign, No bony TTP, No adenopathy - Cardiac Cardiac: RRR, No murmur - Respiratory Respiratory: Clear bilaterally - Abdomen Abdomen: Soft, Non tender, No organomegaly. No: Normal bowel sounds (decreased) - Derm Derm: Normal color, Warm and dry - Extremities Extremities: Normal ROM s pain, No edema, No calf tenderness / cord - Neuro Neuro: Alert and oriented X 3, manager adobe 2-12 intact, No motor deficit (symmetric strength but some tremoring diffusely. ), No sensory deficit, Other (Very unsteady gait and unable to ambulate safely on her own without assistance.). No: Normal speech (articulation is okay. content is somewhat scattered. ) Eye Opening: Spontaneous Motor: Obeys Commands Verbal: Oriented GCS Score: 15 - Psych Psych: No: Normal affect (somewhat anxious.) Results - Vitals Vitals: Vital Signs - 24 hr 12/05/22 12/05/22 12/05/22 07:34 09:05 11:00 Temperature 36.4 C L Heart Rate 109 H 105 H 95 Respiratory 19 22 20 Rate Blood Pressure 120/99 H 163/98 H 160/92 H O2 Saturation 96 95 97 Oxygen O2 Source Room air - EKG (time done) 08:13 EKG releavant findings:: EKG personally interpreted by author of this note. Relevant findings are: Rate: Rate (enter#) (109) Rhythm: Sinus tachycardia, Other (some PVCs) Intervals: RBBB Ischemia: Non specific changes. No: ST elevation c/w ischemia - Labs Labs: Laboratory Tests 12/05/22 12/05/22 12/05/22 07:38 07:38 07:38 WBC 11.8 H RBC 4.40 Hgb 13.6 Hct 40.9 MCV 93.0 MCH 30.9 MCHC 33.3 RDW 12.8 Plt Count 245 MPV 10.9 H Neut # (Auto) 8.5 H Lymph # (Auto) 2.3 Norton # (Auto) 0.8 Eos # (Auto) 0.0 Baso # (Auto) 0.0 Absolute Nucleated RBC 0.00 Nucleated RBC % 0.0 Sodium 139 Potassium 4.4 Chloride 104 Carbon Dioxide 24 Anion Gap 11.0 BUN 19 Creatinine 1.0 Estimated GFR (MDRD) 55 L Glucose 217 H Calcium 9.7 Magnesium 1.3 L Total Bilirubin 0.7 AST 19 ALT 29 Alkaline Phosphatase 55 Total Protein 7.2 Albumin 4.3 Globulin 2.9 Albumin/Globulin Ratio 1.5 Lipase 29 TSH 1.27 Urine Color Urine Clarity Urine pH Ur Specific Ida Urine Protein Urine Glucose (UA) Urine Ketones Urine Occult Blood Urine Nitrite Urine Bilirubin Urine Urobilinogen Ur Leukocyte Esterase Urine RBC Urine WBC Ur Squamous Epith Cells Urine Bacteria Ur Microscopic Review Urine Culture Comments Urine Opiates Screen Ur Oxycodone Screen Urine Methadone Screen Ur Propoxyphene Screen Ur Barbiturates Screen Ur Tricyclics Screen Ur Phencyclidine Scrn Ur Amphetamine Screen U Methamphetamines Scrn U Benzodiazepines Scrn Urine Cocaine Screen U Cannabinoids Screen 12/05/22 08:30 WBC RBC Hgb Hct MCV MCH MCHC RDW Plt Count MPV Neut # (Auto) Lymph # (Auto) Norton # (Auto) Eos # (Auto) Baso # (Auto) Absolute Nucleated RBC Nucleated RBC % Sodium Potassium Chloride Carbon Dioxide Anion Gap BUN Creatinine Estimated GFR (MDRD) Glucose Calcium Magnesium Total Bilirubin AST ALT Alkaline Phosphatase Total Protein Albumin Globulin Albumin/Globulin Ratio Lipase TSH Urine Color YELLOW Urine Clarity CLEAR Urine pH 5.5 Ur Specific Ida >=1.030 H Urine Protein TRACE Urine Glucose (UA) NEGATIVE Urine Ketones TRACE Urine Occult Blood TRACE-INTA Urine Nitrite NEGATIVE Urine Bilirubin NEGATIVE Urine Urobilinogen 0.2 (NORMAL) Ur Leukocyte Esterase SMALL H Urine RBC 0-5 Urine WBC 4-5 Ur Squamous Epith Cells MANY Squamous H Urine Bacteria Moderate H Ur Microscopic Review INDICATED Urine Culture Comments NOT INDICATED Urine Opiates Screen NEGATIVE Ur Oxycodone Screen POSITIVE H Urine Methadone Screen NEGATIVE Ur Propoxyphene Screen NEGATIVE Ur Barbiturates Screen NEGATIVE Ur Tricyclics Screen NEGATIVE Ur Phencyclidine Scrn NEGATIVE Ur Amphetamine Screen NEGATIVE U Methamphetamines Scrn NEGATIVE U Benzodiazepines Scrn POSITIVE H Urine Cocaine Screen NEGATIVE U Cannabinoids Screen NEGATIVE PD Medical Decision Making - ED course Complexity details: reviewed results, re-evaluated patient (On reevaluation, the patient still is having some sentence structure difficulties and seems a bit jittery and forgetful. Attempt to ambulate the patient however was unsuccessful as she was fairly off balance and does not appear safe for walking at this time.), considered differential (She has poor sleep for 4 to 5 days and is out of her sleep medication, likely temazepam. She does not have a medication list with her. She reports increased bupropion about a month ago and also recently adding melatonin and NyQuil to help with sleep.), d/w patient ED course: She has some muscle twitching and imbalance with some falls according to her partner. She has had some confusion and visual hallucinations without any auditory or tactile. She has had several medication changes with out of her temazepam apparently and adding melatonin and NyQuil recently. She states she uses zolpidem for sleep but her last prescription was in August for only 30 tablets. After that was prescription for trazodone. I can only inquire the past 90 days so unclear if this has been a longer-term prescription. She thinks its shorter. She had been on temazepam longer-term. She states gabapentin has been a long- term medication. Bupropion as well though an increased dose from 1 50-300 a month ago. Her symptoms seem most likely medication related without any focal deficits. She has had falls and struck her head so there could be some concussive component. Sounds less likely cerebrovascular. We can get a CT scan to look for injury. I would hold on MRI at this time with consideration but less likely cerebrovascular or tumor. Indications would be for medication related given the various changes in medicines recently. She is tachycardic here with some report of incoordination and muscle twitching as well as confusion. This would lead to concern for serotonin syndrome which could fit with a combination of baseline gabapentin and bupropion in conjunction with increased dose of the bupropion and recent addition of NyQuil which would have dextromethorphan. There could also be some element of benzodiazepine withdrawal. She and her partner seem to believe she got worse with some borrow diazepam but unclear. At this point I might consider added benzodiazepine as both a possibility of benzo withdrawal and also has a treatment for the potential serotonin syndrome. We will check labs as well to look for issues such as DKA, ketosis, hyponatremia, and a urine drug screen. Departure - Departure Disposition: ED Place in Observation Clinical Impression: Hallucinations, visual, Unsteady gait when walking, Confusion, Medication adverse effect, Serotonin syndrome Condition: Stable Record reviewed to determine appropriate education?: Yes
[2022-12-05] MEDS ORDERED: SODIUM CHLORIDE 0.9% 1,000 ML IV STA (08:05)
[2022-12-05 08:16] LABS: BASOPHILS % (AUTO) 0.3 %; EOSINOPHILS % (AUTO) 0.3 %; HCT - HEMATOCRIT 40.9 % (37.0-47.0); HGB - HEMOGLOBIN 13.6 g/dL (12.0-16.0); LYMPHOCYTES # (AUTO) 2.3 10^3/uL (1.5-3.5); LYMPHOCYTES % (AUTO) 19.9 %; MEAN CORPUSCULAR HEMOGLOBIN 30.9 pg (27.0-31.0); MEAN CORPUSCULAR HGB CONC 33.3 g/dL (32.0-36.0); MEAN PLATELET VOLUME 10.9 fL (7.9-10.8); MONOCYTES # (AUTO) 0.8 10^3/uL (0.0-1.0); MONOCYTES % (AUTO) 6.8 %; NEUTROPHILS # (AUTO) 8.5 10^3/uL (1.5-6.6); NEUTROPHILS % (AUTO) 72.4 %; PLT - PLATELET COUNT 245 10^3/uL (130-450); RED CELL DISTRIBUTION WIDTH 12.8 % (12.0-15.0); WHITE BLOOD COUNT 11.8 x10^3/uL (4.8-10.8)
[2022-12-05 08:22] LABS: ALBUMIN 4.3 g/dL (3.2-5.5); ALBUMIN/GLOBULIN RATIO 1.5 (1.0-2.2); BILIRUBIN,TOTAL 0.7 mg/dL (0.2-1.0); CALCIUM 9.7 mg/dL (8.5-10.3); MAGNESIUM 1.3 mg/dL (1.7-2.8); POTASSIUM 4.4 mmol/L (3.5-5.0); TOTAL PROTEIN 7.2 g/dL (6.7-8.2)
[2022-12-05 08:39] LABS: MUDS CUTOFF CONCENTRATIONS CUTOFF CONC BELOW:
[2022-12-05 08:42] LABS: BILIRUBIN,URINE NEGATIVE (NEGATIVE); CLARITY,URINE CLEAR (CLEAR); GLUCOSE, URINE (UA) NEGATIVE (NEGATIVE); KETONES,URINE (UA) TRACE mg/dL (NEGATIVE); LEUKOCYTE ESTERASE, URINE SMALL (NEGATIVE); NITRITE,URINE NEGATIVE (NEGATIVE); OCCULT BLOOD,URINE TRACE-INTA (NEGATIVE); PH,URINE 5.5 PH (5.0-7.5); PROTEIN,URINE TRACE mg/dL (NEGATIVE); UROBILINOGEN,URINE 0.2 (NORMAL) E.U./dL (NORMAL)
[2022-12-05 08:51] LABS: AMPHETAMINE SCREEN,URINE NEGATIVE (NEGATIVE); BARBITURATE SCREEN,UR NEGATIVE (NEGATIVE); BENZODIAZEPINES SCREEN, URINE POSITIVE (NEGATIVE); COCAINE SCREEN URINE NEGATIVE (NEGATIVE); METHADONE SCREEN, URINE NEGATIVE (NEGATIVE); METHAMPHETAMINES SCREEN, URINE NEGATIVE (NEGATIVE); OPIATE SCREEN, URINE NEGATIVE (NEGATIVE); OXYCODONE SCREEN, URINE POSITIVE (NEGATIVE); PROPOXYPHENE SCREEN, URINE NEGATIVE (NEGATIVE); THC CANNABINOID SCREEN, URINE NEGATIVE (NEGATIVE); TRICYCLIC ANTIDEPRESSANT,URINE NEGATIVE (NEGATIVE)
--- NOTE | 2022-12-05 08:52 | CT Report ---
PROCEDURE: HEAD WO INDICATIONS: confused, recent fall/struck head TECHNIQUE: Noncontrast 4.5 mm thick angled axial sections acquired from the foramen magnum to the vertex. For r adiation dose reduction, the following was used: automated exposure control, adjustment of mA and/or kV according to patient size. COMPARISON: None. FINDINGS: Image quality: Excellent. CSF spaces: Basal cisterns are patent. No extra-axial fluid collections. Ventricles are normal in size and shape. Brain: No midline shift. No intracranial masses or hemorrhage. Plasencia-white matter interface is norm al. Age-related volume loss and small vessel ischemic change. Intracranial carotid calcifications an d vertebral artery calcifications. Skull and face: Calvarium and visualized facial bones are intact, without suspicious lesions. Sinuses: Visualized sinuses and mastoids are clear. IMPRESSION: No acute intracranial pathology Reviewed by: Kiran Vee MD on 12/05/2022 8:50 AM PDT Approved by: Kiran Vee MD on 12/05/2022 8:50 AM PDT Station ID: [id number]
[2022-12-05 09:04] LABS: BACTERIA,URINE Moderate /HPF (None Seen); RBC,URINE 0-5 /HPF (0-5); SQUAMOUS EPITHELIAL CELL,UR MANY Squamous (<= Few)
[2022-12-05] MEDS ORDERED: TEMAZEPAM 15 MG CAPSULE PO STA (10:06)
[2022-12-05] MEDS ORDERED: TEMAZEPAM 15 MG CAPSULE PO PRN (14:59)
[2022-12-05] MEDS ORDERED: LORazepam 2 MG/ML VIAL IVP STA (15:10)
[2022-12-05] MEDS ORDERED: ACETAMINOPHEN 500 MG TABLET PO PRN (20:00)
[2022-12-05] MEDS ORDERED: TEMAZEPAM 15 MG CAPSULE PO SCH (21:00)
[2022-12-06 05:34] LABS: BASOPHILS % (AUTO) 0.6 %; EOSINOPHILS # (AUTO) 0.1 10^3/uL (0.0-0.7); EOSINOPHILS % (AUTO) 1.9 %; HCT - HEMATOCRIT 38.3 % (37.0-47.0); HGB - HEMOGLOBIN 12.6 g/dL (12.0-16.0); LYMPHOCYTES # (AUTO) 2.6 10^3/uL (1.5-3.5); LYMPHOCYTES % (AUTO) 40.5 %; MEAN CORPUSCULAR HEMOGLOBIN 31.1 pg (27.0-31.0); MEAN CORPUSCULAR HGB CONC 32.9 g/dL (32.0-36.0); MEAN CORPUSCULAR VOLUME 94.6 fL (81.0-99.0); MEAN PLATELET VOLUME 10.6 fL (7.9-10.8); MONOCYTES # (AUTO) 0.5 10^3/uL (0.0-1.0); MONOCYTES % (AUTO) 7.6 %; NEUTROPHILS # (AUTO) 3.2 10^3/uL (1.5-6.6); NEUTROPHILS % (AUTO) 49.1 %; PLT - PLATELET COUNT 197 10^3/uL (130-450); RED BLOOD COUNT 4.05 10^6/uL (4.20-5.40); WHITE BLOOD COUNT 6.4 x10^3/uL (4.8-10.8)
[2022-12-06 05:43] LABS: CALCIUM 9.1 mg/dL (8.5-10.3); CREATININE 0.9 mg/dL (0.4-1.0); POTASSIUM 3.8 mmol/L (3.5-5.0)
[2022-12-06] MEDS ORDERED: PANTOPRAZOLE 40 MG TABLET PO SCH (07:00)
[2022-12-06 08:30] VITALS: BP 140/91
--- NOTE | 2022-12-06 09:13 | ED Physician Documentation ---
ED Addendum - Addendum Addendum: 12/06/22 09:10 The patient is fully conversant and appropriate with normal conversation. She states she feels incredibly better. She was aware of having difficulty speaking and walking yesterday. She went to the bathroom ambulatory on her own through the night and this morning. She had breakfast without any problems. She does appear to be cleared. This would likely reinforce medication related side effects of extra serotonin medications and potential benzodiazepine withdrawal. We will discharge her at this point with instructions to really resume some benzodiazepine dosing and with her provider if they want to change sleep medicines that we will need to slow taper of the benzodiazepines as she has been on them long-term. I would have her decrease the Wellbutrin to 150 mg. If she still has some of those at home otherwise can just take 1 every other day. She is not to use any NyQuil or melatonin for sleep as this can affect the serotonin levels. (The dextromethorphan component) and the melatonin can cause some confusion. Follow-up with her primary care. She does feel that her primary care was refilling her temazepam prescription. I can write a prescription for 3 to 5 days worth just in case to help bridge. Disposition: The patient discharged home in stable condition. Diagnoses: 1. Altered mental status 2. Weakness with balance problem walking 3. Medication side effects 4. Serotonin syndrome 5. Benzodiazepine dependence
[2022-12-06] MEDS ORDERED: LORazepam 1 MG TABLET PO STA (10:22)
== END 2022-12-06 11:07 | disposition home or self-care (01) ==
LOC: ED 07:25
DX: R44.1 Visual hallucinations (principal); R26.81 Unsteadiness on feet; R41.0 Disorientation, unspecified; R53.1 Weakness; T42.4X5A Adverse effect of benzodiazepines, initial encounter; I10 Essential (primary) hypertension; E78.00 Pure hypercholesterolemia, unspecified; E11.9 Type 2 diabetes mellitus without complications; Z79.899 Other long term (current) drug therapy; Z87.891 Personal history of nicotine dependence
CPT/HCPCS: 36415; 70450; 80048; 80053; 80306; 81001; 83690; 83735; 84443; 85025; 93005; 96361; 96374; 99284; A9270; J2060; J8499; 81003; 87086

== ENCOUNTER 2023-08-22 14:45 | Outpatient (CLI) | payer MEDICARE ==
--- NOTE | 2023-08-23 15:35 | Ultrasound Report ---
PROCEDURE: Renal (Retroperitoneal) INDICATIONS: CKD TECHNIQUE: Real-time scanning was performed of the retroperitoneal organs, with image documentation. COMPARISON: Ultrasound abdomen limited, 05/20/2021. CT abdomen/pelvis without, 04/14/2021. FINDINGS: Kidneys: Kidneys are normal in size. Right kidney measures 10.5 cm long; left kidney measures 10.1 cm long. Right renal cortical thickness is 1.3 cm; left renal cortical thickness is 0.8 cm. No virginia d masses. There is severe hydronephrosis in left kidney. No right hydronephrosis. There is a small p erinephric fluid and posterior to the left kidney measuring 1.3 x 1.4 x 2.2 cm. Bladder: Pre-void bladder volume is 42 mL. Post-void residual is 20 mL. Pre-void images demonstrat e no intraluminal masses or stones. On pre-void images, both ureteral jets are noted with color Dopp ler interrogation. (Of note, ureteral jets may not be detectable in up to 25% of cases due to insuff icient differences in specific gravity between ureteral and bladder urine). Miscellaneous: No free abdominal fluid. IMPRESSION: 1. Severe left hydronephrosis is present. An obstructive stone or mass is not identified. Consider CT KUB for further evaluation. 2. Small perinephric fluid posterior to the left kidney. Reviewed by: Shawnee Javed MD on 08/23/2023 3:34 PM PST Approved by: Shawnee Javed MD on 08/23/2023 3:34 PM PST Station ID: [id number]
== END 2023-08-22 14:46 | disposition home or self-care (01) ==
LOC: DI 14:45
PROVIDERS: ATTEND Nurse Practitioner Family
DX: N18.31 Chronic kidney disease, stage 3a (principal); N13.30 Unspecified hydronephrosis; R93.5 Abnormal findings on diagnostic imaging of other abdominal regions, including retroperitoneum

== ENCOUNTER 2023-09-05 10:48 | Outpatient (CLI) | payer MEDICARE ==
--- NOTE | 2023-09-05 12:11 | CT Report ---
PROCEDURE: Abdomen/Pelvis WO INDICATIONS: HYDRONEPHROSIS TECHNIQUE: A CT scan of the abdomen and pelvis was performed without the use of intravenous contrast. Images we re recorded and evaluated at appropriate window settings. Reformats: coronal and sagittal. For radiat ion dose reduction, the following was used: automated exposure control, adjustment of mA and/or kV ac cording to patient size. COMPARISON: None. FINDINGS: Image quality: Excellent. Lung bases and heart: Unremarkable. Liver: No contour-deforming mass. Hepatic cyst present. Gallbladder and biliary tree: 2 Spleen: No splenomegaly. Pancreas: No pancreatic ductal dilation. Adrenals: No adrenal nodule. Kidneys and ureters: Obstructing 1.8 cm stone in the proximal left ureter (1179 Hounsfield unit). Thi s results in severe hydronephrosis and hydroureter and asymmetric left-sided perinephric fat strandin g. Bowel and peritoneum: No bowel distension. No pathologic free fluid. Gastric sleeve surgery. Lymph nodes: No central or retroperitoneal adenopathy. Vessels: No infrarenal aortic aneurysm. PELVIS Reproductive organs: Unremarkable. Bladder: No wall thickness, accounting for underdistention. Pelvic lymph nodes: No pelvic adenopathy by size criteria. Bones: No aggressive osseous abnormality. Other: No significant ventral or inguinal hernia. IMPRESSION: Obstructing 18 mm stone in the proximal left ureter, resulting in severe hydronephrosis and hydrouret er. Reviewed by: Mikael Hermosillo MD on 09/05/2023 12:09 PM PST Approved by: Mikael Hermosillo MD on 09/05/2023 12:09 PM PST Station ID: [id number]
== END 2023-09-05 10:49 | disposition home or self-care (01) ==
LOC: DI 10:48
PROVIDERS: ATTEND Nurse Practitioner Family
DX: N13.2 Hydronephrosis with renal and ureteral calculous obstruction (principal)

== ENCOUNTER 2023-10-02 08:18 | Day surgery (SDC) | payer MEDICARE ==
[2023-10-02] MEDS: LACTATED RINGERS 1,000 ML IV ONE ×2 (08:30→11:10)
[2023-10-02 08:46] VITALS: O2SAT 96
[2023-10-02] MEDS ORDERED: ceFAZolin 2 GM VIAL ONE (08:51)
--- NOTE | 2023-10-02 09:46 | ANESTHESIA ---
Pre-Anesthesia VS, & Labs - Diagnosis left ureteral stone with hydronephrosis - Procedure left ureteroscopy, laser lithotripsy asnd stent placement Vital Signs: Temp Pulse Resp BP Pulse Ox O2 Flow Rate 36.3 C L 89 12 162/77 H 96 10/02/23 08:30 10/02/23 08:30 10/02/23 08:30 10/02/23 08:30 10/02/23 08:30 Height: 5 ft Weight (kg): 60.4 kg Body Mass Index: 25.9 BMI Classification: Overweight - NPO >8 hours - Is Patient ?: No - Lab Results Current Lab Results: Laboratory Tests 10/02/23 09:00: POC Whole Bld Glucose 90 Lab results reviewed: Yes Home Medications and Allergies Home Medications: Ambulatory Orders Ergocalciferol [Vitamin D2] 50,000 unit PO Q7D 09/28/23 Quetiapine Fumarate 150 mg PO QPM 09/28/23 Semaglutide [Ozempic] 1 mg SUBQ OAW 09/28/23 oxyCODONE [Roxicodone] 5 mg PO Q6H PRN 09/28/23 lisinopriL [Prinivil] 10 mg PO DAILY 05/16/13 Atorvastatin [Lipitor] 40 mg PO DAILY 07/10/19 Gabapentin 300 mg PO BID 08/20/19 buPROPion [Wellbutrin Sr] 300 mg PO DAILY 08/20/19 Ergocalciferol [Vitamin D2] 50,000 unit PO Q7D 09/28/23 Quetiapine Fumarate 150 mg PO QPM 09/28/23 Semaglutide [Ozempic] 1 mg SUBQ OAW 09/28/23 oxyCODONE [Roxicodone] 5 mg PO Q6H PRN 09/28/23 Allergies/Adverse Reactions: Allergies Allergy/AdvReac Type Severity Reaction Status Date / Time codeine [Codeine] AdvReac NAUSEA/EMES Verified 10/02/23 08:52 IS empagliflozin AdvReac yeast Verified 10/02/23 08:52 [From Jardiance] infections metformin AdvReac Nausea, Verified 10/02/23 08:52 diarrhea NSAIDS (Non-Steroidal AdvReac gastric Verified 10/02/23 08:52 Anti-Inflamma sleeve Anes History & Medical History - Anesthetic History Anesthesia Complications: reports: Post-Operative Nausea/Vomiting - Medical History Cardiovascular: reports: Hypertension, High cholesterol Pulmonary: reports: None Gastrointestinal: reports: Hiatal hernia, Colon polyps Urinary: reports: Incontinence, Kidney stones Neuro: reports: None Musculoskeletal: reports: Chronic back pain Endocrine/Autoimmune: reports: Type 2 diabetes (last dose of ozembic 09/20/2023. No nausea) Blood Disorders: reports: None Skin: reports: None Smoking Status: Current every day smoker (hx 20 pack year) Psychosocial: reports: Depression History of Cancer?: No - Surgical History General: reports: Cholecystectomy, Appendectomy, Gastric surgery (gastric sleeve 2017), Colonoscopy, Other Eyes Ears Nose Throat (EENT): reports: Tonsil/Adenoidectomy Gynecologic: reports: Hysterectomy, Oophrectomy Orthopedic: reports: Other Exam General: Alert, Oriented x3, Cooperative, No acute distress Dental: Other (missing front teeth) Mouth Openin Fingerbreadth Neck Mobility: Normal Mallampati classification: II Thyromental Distance: 4-6 cm Mental/Cognitive Status: Alert/Oriented X3, Normal for patient Plan Anesthesia Type: General Consent for Procedure(s) Verified and Reviewed: Yes Code Status: Attempt Resuscitation ASA classification: 3-Severe systemic disease Is this case an emergency?: No
[2023-10-02] MEDS ORDERED: iohexoL-240 10 ML VIAL IVP ONE (09:55)
[2023-10-02] MEDS ORDERED: LIDOCAINE JELLY 2% 6 ML JEL.PF.APP ONE (09:55)
[2023-10-02] MEDS ORDERED: fentaNYL 100 MCG/2 ML VIAL ONE (09:58)
[2023-10-02] MEDS ORDERED: ONDANSETRON 4 MG/2 ML VIAL ONE (09:59)
[2023-10-02] MEDS ORDERED: LIDOCAINE-PF 2% 10 ML AMP SUBQ ONE (10:20)
[2023-10-02] MEDS ORDERED: PROPOFOL 200 MG/20 ML VIAL IVP ONE (10:20)
[2023-10-02] MEDS: LIDOCAINE JELLY 2% 6 ML JEL.PF.APP UR ONE (11:00)
[2023-10-02] MEDS ORDERED: HYDROcod/ACETAM 5/325 MG TABLET PO PRN (11:12)
[2023-10-02] MEDS ORDERED: ONDANSETRON 4 MG/2 ML VIAL IVP PRN ×2 (11:12→11:21)
--- NOTE | 2023-10-02 11:20 | Discharge Plan ---
Discharge Plan Problem Reviewed?: Yes Disposition: Home, Self Care Condition: Good Prescriptions: Docusate Sodium 100Mg Capsule [Colace 100Mg Capsule] 100 mg PO DAILY #7 cap Ondansetron HCl 4 mg PO Q8H PRN #12 tablet PRN Reason: Nausea / Vomiting oxyBUTYnin chloride [Oxybutynin Chloride ER] 5 mg PO DAILY #21 tab oxyCODONE [Roxicodone] 5 mg PO Q4H PRN #6 tablet PRN Reason: Pain Diet: Regular Activity Restrictions: No Restrictions Shower Restrictions: No Driving Restrictions: No Instruction Topics: Stents Ureteral Additional Instructions or Follow Up instructions: You will be contacted for follow-up with Dr. Avalos in a week or 2 No Smoking: If you smoke, Please STOP! Call for help. Follow-up with: Jemal Olivo MD [Primary Care Provider] - Jhonny Avalos MD [Provider Admit Priv/Credential] -
[2023-10-02] MEDS ORDERED: NALOXONE 0.4 MG/ML VIAL IVP PRN (11:21)
[2023-10-02] MEDS ORDERED: ATROPINE ABBOJECT 1 MG/10 ML SYRINGE IVP PRN (11:21)
[2023-10-02] MEDS ORDERED: ePHEDrine 50 MG/ML VIAL IVP PRN (11:21)
[2023-10-02] MEDS ORDERED: fentaNYL 100 MCG/2 ML VIAL IVP PRN (11:21)
--- NOTE | 2023-10-02 11:25 | OPERATIVE REPORT ---
Operative Report - General Procedure Date: 10/02/23 Planned Procedure: Cystoscopy, left ureteroscopy, laser lithotripsy, stent Pre-Op Diagnosis: Left ureteral stone Procedure Performed: Cystoscopy, left ureteroscopy, laser lithotripsy, stent Post Op Diagnosis: Left ureteral stone - Procedure Note Primary Surgeon: Robbie Anesthesia Provider: CHAVA Murphy Anesthesia Technique: General LMA Pathology: left ureteral stones Estimated Blood Loss (mL): 1 Indications: 1.8cm left proximal ureteral stone Findings: Very large stone. Radiopaque. Some ingrowth into ureter wall. No remaining radiopacities after procedure Complications: Significant stone burden. Many stone fragments and dust made. Will plan for second look - Other Other Information/Narrative: After informed sent obtained patient brought to the OR and laid supine position. Patient was anesthetized per anesthesia protocols and prepped and draped in usual sterile fashion in the dorsolithotomy position. A formal timeout was performed confirming the patient, procedure and laterality. 22 Ethiopian cystoscope was advanced easily into urinary bladder. Bladder inspected and full there is no masses, lesions or other concerns. A sensor wire was placed up the left ureteral orifice. A very large radiopaque stone was seen in the proximal ureter. We were able to get a sensor wire passed this into the kidney. A dual-lumen catheter was then used to dilate the distal ureter. A Amplatz Super Stiff wire was placed up into the proximal ureter just distal to the stone. A 12/ 14 Ethiopian 28 cm ureteral access sheath was sequentially dilated and then placed just distal to the stone. A flexible ureteroscope was advanced up to the stone. The stone was green/yellow and very hard. A 272 m laser fiber was used. At a power of 0.8 and a rate of 8 we dusted and fragmented the stone into the small pieces. There is significant amount of stone burden. We eventually were able to get all the way up into the kidney. There still seem to be some stone pieces almost like an eggshell around the ureter. At that point time we have been lasering for significant portion of the procedure. I think most the stone had broken up. There were no radiopacities seen on ore crusher imaging. I think it would be reasonable for us to leave a stent and come back for a second look in a few weeks for a better evaluation. A 6 Ethiopian 22 cm double-J stent was placed with good curling in the kidney and good curling noted in the bladder. The bladder was emptied and stone dust was sent for analysis. A Uro-Jet was placed. This concluded the procedure. Patient tolerated the procedure well was brought to PACU without further incident. I will see her back in a week or 2 to discuss a second look procedure.
[2023-10-02 11:56] VITALS: BP 163/70
[2023-10-02] MEDS ORDERED: LACTATED RINGERS 1,000 ML IV SCH (12:00)
--- NOTE | 2023-10-02 12:52 | ANESTHESIA POST OP EVALUATION ---
Anesthesia Post Eval - Post Anesthesia Eval Vitals: Last Vital Signs Temp 36.7 C 10/02/23 11:40 Pulse 73 10/02/23 11:50 Resp 18 10/02/23 11:50 BP 163/70 H 10/02/23 11:50 Pulse Ox 96 10/02/23 11:50 O2 Flow Rate CV Function Including HR & BP: Stable Pain Control: Satisfactory Nausea & Vomiting: Negative Mental Status: Baseline Respiratory Status: Airway Patent Hydration Status: Satisfactory Anesthesia Complications: None
--- NOTE | 2023-10-02 15:40 | XRAY Report ---
PROCEDURE: OR C-Arm Procedure INDICATIONS: stent placement FLUORO TIME: 0.2 MIN TECHNIQUE: Intraoperative fluoroscopic images obtained in real-time COMPARISON: None. FINDINGS: 3 intraoperative fluoroscopic images are taken of the left renal collecting system. No contrast was i njected. IMPRESSION: 3 intraoperative fluoroscopic images of the left renal collecting system. Probable stent projecting o isadora the expected region of the left renal hilum. No contrast injected. Please see separately dictate d procedure report for full details. Reviewed by: Luara Sanchez MD on 10/02/2023 3:39 PM PST Approved by: Laura Sanchez MD on 10/02/2023 3:39 PM PST Station ID: [id number]
== END 2023-10-02 08:19 | disposition home or self-care (01) ==
LOC: SDS 08:18
PROVIDERS: ATTEND Urology
DX: N20.1 Calculus of ureter (principal); E11.9 Type 2 diabetes mellitus without complications; I10 Essential (primary) hypertension; E78.00 Pure hypercholesterolemia, unspecified; F41.9 Anxiety disorder, unspecified; F17.210 Nicotine dependence, cigarettes, uncomplicated; Z98.84 Bariatric surgery status
CPT/HCPCS: 52356; 82365; C1758; C2617; J7120; Q9966

== ENCOUNTER 2023-11-06 06:53 | Day surgery (SDC) | payer MEDICARE ==
[~2023-11-06 06:53] MED LIST changes: -LIDOCAINE-PF 2% 10 ML AMP SUBQ ONE; +ceFAZolin 2 GM VIAL ONE
[2023-11-06] MEDS: LACTATED RINGERS 1,000 ML IV ONE ×2 (06:58→08:56)
--- NOTE | 2023-11-06 07:29 | ANESTHESIA ---
Pre-Anesthesia VS, & Labs - Diagnosis L ureter stone - Procedure cystoscopy, ureteroscopy, laser lithotripsy L stone Vital Signs: Temp Pulse Resp BP Pulse Ox O2 Flow Rate 36.1 C L 81 19 144/73 H 98 11/06/23 07:11 11/06/23 07:11 11/06/23 07:11 11/06/23 07:11 11/06/23 07:11 Height: 5 ft Weight (kg): 57.8 kg Body Mass Index: 24.8 BMI Classification: Normal - NPO >8 hours - Is Patient ?: No - Lab Results Lab results reviewed: Yes Home Medications and Allergies lisinopriL [Prinivil] 10 mg PO DAILY 05/16/13 Atorvastatin [Lipitor] 40 mg PO DAILY 07/10/19 Gabapentin 300 mg PO BID 08/20/19 buPROPion [Wellbutrin Sr] 300 mg PO DAILY 08/20/19 Ergocalciferol [Vitamin D2] 50,000 unit PO Q7D 09/28/23 Quetiapine Fumarate 150 mg PO QPM 09/28/23 Semaglutide [Ozempic] 1 mg SUBQ OAW 09/28/23 Allergies/Adverse Reactions: Allergies Allergy/AdvReac Type Severity Reaction Status Date / Time codeine [Codeine] AdvReac NAUSEA/EMES Verified 10/02/23 08:52 IS empagliflozin AdvReac yeast Verified 10/02/23 08:52 [From Jardiance] infections metformin AdvReac Nausea, Verified 10/02/23 08:52 diarrhea NSAIDS (Non-Steroidal AdvReac gastric Verified 10/02/23 08:52 Anti-Inflamma sleeve Anes History & Medical History - Anesthetic History Anesthesia Complications: reports: No previous complications Family history of Anesthesia Complications: Denies Family history of Malignant Hyperthermia: Denies - Medical History Cardiovascular: reports: Hypertension, High cholesterol Pulmonary: reports: None Gastrointestinal: reports: Hiatal hernia, Colon polyps Urinary: reports: Incontinence, Kidney stones Neuro: reports: None Musculoskeletal: reports: Chronic back pain Endocrine/Autoimmune: reports: Type 2 diabetes Blood Disorders: reports: None Skin: reports: None Smoking Status: Current every day smoker (hx 20 pack year) - Surgical History General: reports: Cholecystectomy, Appendectomy, Gastric surgery, Colonoscopy, Other Eyes Ears Nose Throat (EENT): reports: Tonsil/Adenoidectomy Urologic: reports: Ureterolithotomy (stones) Gynecologic: reports: Hysterectomy, Oophrectomy Orthopedic: reports: Other Exam General: Alert, Oriented x3, Cooperative Dental: Poor dentition, Other (missing front teeth) Mouth Openin Fingerbreadth Neck Mobility: Normal Mallampati classification: II Respiratory: Lungs clear, Normal breath sounds, No respiratory distress Cardiovascular: Regular rate Neurological: Normal speech Mental/Cognitive Status: Alert/Oriented X3, Normal for patient Cognitive Status: Within normal limits Plan Anesthesia Type: General Consent for Procedure(s) Verified and Reviewed: Yes Code Status: Attempt Resuscitation ASA classification: 3-Severe systemic disease Is this case an emergency?: No
[2023-11-06] MEDS ORDERED: LIDOCAINE 2% URO-JET 5 ML SYRINGE UR ONE (07:35)
[2023-11-06] MEDS ORDERED: iohexoL-240 10 ML VIAL IVP ONE (07:35)
[2023-11-06] MEDS ORDERED: PROPOFOL 200 MG/20 ML VIAL IVP ONE (08:02)
[2023-11-06] MEDS ORDERED: MIDAZOLAM 2 MG/2 ML VIAL ONE (08:02)
[2023-11-06] MEDS ORDERED: fentaNYL 100 MCG/2 ML VIAL ONE (08:03)
[2023-11-06] MEDS ORDERED: ONDANSETRON 4 MG/2 ML VIAL ONE (08:18)
[2023-11-06] MEDS ORDERED: DEXAMETHASONE 4 MG/ML VIAL ONE (08:18)
[2023-11-06] MEDS: iohexoL-240 10 ML VIAL IVP ONE (08:20)
[2023-11-06] MEDS: LIDOCAINE 2% URO-JET 5 ML SYRINGE UR ONE (08:20)
[2023-11-06] MEDS ORDERED: METOCLOPRAMIDE 10 MG/2 ML VIAL IVP PRN (08:48)
[2023-11-06] MEDS ORDERED: ATROPINE ABBOJECT 1 MG/10 ML SYRINGE IVP PRN (08:48)
[2023-11-06] MEDS ORDERED: fentaNYL 100 MCG/2 ML VIAL IVP PRN (08:48)
[2023-11-06] MEDS ORDERED: NALOXONE 0.4 MG/ML VIAL IVP PRN (08:48)
[2023-11-06] MEDS ORDERED: MORPHINE 2 MG/ML CARPUJECT IVP PRN (08:48)
[2023-11-06] MEDS ORDERED: ePHEDrine 50 MG/ML VIAL IVP PRN (08:48)
[2023-11-06] MEDS ORDERED: HYDROmorphone 0.5 MG/0.5 ML SYRINGE IVP PRN (08:48)
[2023-11-06] MEDS ORDERED: ONDANSETRON 4 MG/2 ML VIAL IVP PRN (08:48)
[2023-11-06] MEDS ORDERED: LACTATED RINGERS 1,000 ML IV SCH (09:00)
[2023-11-06] MEDS ORDERED: HYDROcod/ACETAM 5/325 MG TABLET PO PRN (09:02)
--- NOTE | 2023-11-06 09:07 | Discharge Plan ---
Discharge Plan Problem Reviewed?: Yes Disposition: Home, Self Care Condition: Good Prescriptions: oxyBUTYnin chloride [Oxybutynin Chloride] 5 mg PO TID PRN #60 tab PRN Reason: Bladder Spasms Diet: Diabetic Activity Restrictions: No Restrictions Shower Restrictions: No Driving Restrictions: No Instruction Topics: Stents Ureteral Additional Instructions or Follow Up instructions: You will be contacted for follow-up in 1 to 3 weeks for cystoscopy and stent removal. Please take your antibiotic on the way to this appointment No Smoking: If you smoke, Please STOP! Call for help. Follow-up with: Jhonny Avalos MD [Provider Admit Priv/Credential] -
--- NOTE | 2023-11-06 09:11 | OPERATIVE REPORT ---
Operative Report - General Procedure Date: 11/06/23 Planned Procedure: Cystoscopy, left ureteroscopy, laser lithotripsy, stent exchange versus removal Pre-Op Diagnosis: Left ureteral stone Procedure Performed: Cystoscopy, left ureteroscopy, laser lithotripsy, basket stone extraction, stent exchange Post Op Diagnosis: Left ureteral and kidney stones - Procedure Note Primary Surgeon: Robbie Anesthesia Provider: CHAVA Harvey Anesthesia Technique: General LMA Pathology: left kidney stone Findings: Stone debris in ureter removed 6mm chunk of stone fragmented and removed Complications: none - Other Other Information/Narrative: After informed consent was obtained the patient was brought to the OR and laid in the supine position. The patient was anesthetized per anesthesia protocols and prepped draped in usual sterile fashion in the dorsolithotomy vision. A formal timeout was performed reconfirming the patient, procedure and laterality. A 22 Estonian scope was advanced with ease into urinary bladder. A stent was emanating from her left ureteral orifice. A sensor wire was placed next to this up into the kidney. The old stent was then removed. A 12 Estonian Ford catheter was placed in the bladder to decompress the bladder. A flexible ureteroscope was advanced next to the wire up into the ureter. Some stone debris was identified and using a basket this was grasped and removed. We then placed the flexible ureteroscope up into the proximal ureter where we could see where her previous stone had been embedded in the wall of the ureter. There was still small fragment of stone there which was grasped and removed. At that point we traversed up into the kidney and we could see that there was some stone debris that was small and could pass easily. We did see a larger stone which was an old chunk of her very large stone previously. This stone fragment was about 6 mm in size and using a 200 m laser fiber at a power of 0.8 and a rate of 8 we dusted to small pieces a larger fragment was grasped and removed. The kidney was then inspected and full no large stone pieces were seen. The ureter was cleared under direct visualization. Her old Ford catheter was removed. A 6 Estonian 24 cm double-J ureteral stent was placed with good curling noted in the kidney and good curling on the bladder. A Uro-Jet was placed in the bladder. This concluded the procedure and the patient tolerated the procedure well. She was brought to PACU that further incident. She will follow-up in 1 to 3 weeks time for cystoscopy and stent removal in the office.
[2023-11-06 10:07] VITALS: BP 134/69; O2SAT 97
--- NOTE | 2023-11-06 11:59 | ANESTHESIA POST OP EVALUATION ---
Anesthesia Post Eval - Post Anesthesia Eval Vitals: Last Vital Signs Temp 36.3 C L 11/06/23 09:50 Pulse 76 11/06/23 09:50 Resp 14 11/06/23 09:50 BP 134/69 H 11/06/23 09:50 Pulse Ox 97 11/06/23 09:50 O2 Flow Rate CV Function Including HR & BP: Stable Pain Control: Satisfactory Nausea & Vomiting: Negative Mental Status: Baseline Respiratory Status: Airway Patent Hydration Status: Satisfactory Anesthesia Complications: None
--- NOTE | 2023-11-06 13:24 | XRAY Report ---
PROCEDURE: OR C-Arm Procedure INDICATIONS: UROLOGY; STENT EXCHANT3 TECHNIQUE: 1 C-arm images in the operative suite COMPARISON: None. FINDINGS: 1 C-arm images were obtained in the operative suite during performance of a ureteral stent exchange w ith no radiographic evidence of complications. FLUOROSCOPIC TIME: 0.1 minutes IMPRESSION: Operative C-arm imaging utilized during performance of a ureteral stent exchange Reviewed by: Kiran Vee MD on 11/06/2023 1:22 PM PDT Approved by: Kiran Vee MD on 11/06/2023 1:22 PM PDT Station ID: [id number]
== END 2023-11-06 06:54 | disposition home or self-care (01) ==
LOC: SDS 06:53
PROVIDERS: ATTEND Urology
PROC: 0TC78ZZ Extirpation of Matter from Left Ureter, Via Natural or Artificial Opening Endoscopic (ICD-10-PCS; 2023-11-06)
PROC: 0T778DZ Dilation of Left Ureter with Intraluminal Device, Via Natural or Artificial Opening Endoscopic (ICD-10-PCS; 2023-11-06)
PROC: 0TC18ZZ Extirpation of Matter from Left Kidney, Via Natural or Artificial Opening Endoscopic (ICD-10-PCS; principal; 2023-11-06 08:15)
DX: N13.2 Hydronephrosis with renal and ureteral calculous obstruction (principal); R32 Unspecified urinary incontinence; E11.9 Type 2 diabetes mellitus without complications; I10 Essential (primary) hypertension; Z79.84 Long term (current) use of oral hypoglycemic drugs; Z79.85 Long-term (current) use of injectable non-insulin antidiabetic drugs
CPT/HCPCS: 52356; C1758; C2617; J7120; Q9966; 82365

== ENCOUNTER 2024-04-16 14:51 | Outpatient (CLI) | payer MEDICARE ==
--- NOTE | 2024-04-19 07:56 | Mammography Report ---
BILATERAL DIGITAL SCREENING MAMMOGRAM 3D/2D: 04/16/2024 CLINICAL: Routine screening. Comparison is made to exams dated: 12/23/2020 mammogram, 10/03/2018 mammogram, 10/30/2015 mammogram, an d 06/03/2014 mammogram - [facility]. There are scattered areas of fibroglandular density in both breasts (category b / 25%-50% glandular t issue). No significant masses, calcifications, or other findings are seen in either breast. There has been no significant interval change. IMPRESSION: NEGATIVE There is no mammographic evidence of malignancy. A 1 year screening mammogram is recommended. Based on the Tyrer Cuzick model (a risk assessment model) the patient's lifetime risk is 1.9% and her 10 year risk is 1.4%. According to the ACR, ACS, and NCCN guidelines, an annual breast MRI exam stephany g with mammogram is recommended if the patient's lifetime risk is 20% or greater. This exam was interpreted at Station ID: [id number]. NOTE: For mammograms, a report in lay terms will be sent to the patient. Approximately 15% of breast malignancies will not be visualized mammographically. In the management of a palpable breast mass, a negative mammogram must not discourage biopsy of a clinically suspicious lesion. Electronically Signed By: Laura Sanchez M.D., Ph.D. pauly/jennifer:04/19/2024 00:53:45 letter sent: No_Letter ACR BI-RADS Category 1: Negative [id number] PARENCHYMAL PATTERN: (A) - The breast(s) demonstrate(s) scattered fibroglandular densities. BI-RADS CATEGORY: (1) - 1 RECOMMENDATION: (ANNUAL) - Recommend routine annual screening mammography. [id number] 1 year screening LATERALITY: (B)
== END 2024-04-16 14:52 | disposition home or self-care (01) ==
LOC: DI.S 14:51
PROVIDERS: ATTEND Nurse Practitioner Family
DX: Z12.31 Encounter for screening mammogram for malignant neoplasm of breast (principal); R92.323 Mammographic fibroglandular density, bilateral breasts